=== PATIENT | female | born 1960 | race African-American/Black ===

== ENCOUNTER 2017-05-10 11:30 | Outpatient (CLI) | payer OTHER ==
--- NOTE | 2017-05-10 12:55 | RAD ---
CHEST TWO VIEWS: History: Upper lobe neoplasm, malignant. Comparison: 04-14-17 FINDINGS: Stable surgical clips projecting over the left hilum. Normal cardiac silhouette. The pulmonary vesse ls and hilum are normal. Right lung and costophrenic angle are clear. Persistent opacification of le ft lung base with tenting of the left hemidiaphragm. No pneumothorax or osseous abnormalities. IMPRESSION: No significant interval change. POS: [facility]
== END 2017-05-10 11:31 | disposition home or self-care (01) ==
LOC: RAD 11:30
PROVIDERS: ATTEND Thoracic Surgery (Cardiothoracic Vascular Surgery)
DX: C34.12 Malignant neoplasm of upper lobe, left bronchus or lung (principal)
CPT/HCPCS: 71020

== ENCOUNTER 2017-06-28 02:01 | Emergency (ER) | payer OTHER, SELFPAY ==
[2017-06-28] MEDS ORDERED: predniSONE 20 MG TAB ONE (02:28)
[2017-06-28] MEDS ORDERED: Azithromycin 250 MG TAB ONE (02:28)
[2017-06-28 02:32] LABS: #Basophils 0.1 thou/uL (0.0-0.2); #Eosinphils 0.1 thou/uL (0.0-0.7); #Lymphocytes 2.2 thou/uL (1.20-3.40); #Neutrophils 5.9 thou/uL (1.40-6.50); %Basophils 1.3 % (0.0-1.0); %Eosinophils 1.3 % (0.0-10.0); %Lymphocytes 23.8 % (21.0-51.0); %Monocytes 10.6 % (0.0-10.0); Hematocrit 40.9 % (36.0-47.0); Mean Platelet Volume 6.4 fL (7.4-10.4); Red Blood Cell (RBC) Count 4.56 mill/uL (4.20-5.40); White Blood Cell (WBC) Count 9.3 thou/uL (4.8-10.8)
[2017-06-28 02:53] LABS: ALT (SGPT) 17 U/L (8-55); AST (SGOT) 22 U/L (5-34); Alkaline Phosphatase 77 U/L (40-150); Anion Gap 15 mmol/L (10-20); BUN (Urea Nitrogen) 14 mg/dL (9.8-20.1); Calc. Creatinine Clearance 0 mL/min (70-130); Calcium 9.6 mg/dL (7.8-10.44); Carbon Dioxide 20 mmol/L (22-29); Chloride 109 mmol/L (98-107); Estimated GFR-MDRD 82; Globulin 3.4 g/dL (2.4-3.5); Protein, Total 7.9 g/dL (6.0-8.3)
[2017-06-28 02:56] LABS: Troponin I Less than 0.010 ng/mL (< 0.028)
[2017-06-28] MEDS ORDERED: Potassium Chloride 20 MEQ TAB ONE (03:02)
[2017-06-28] MEDS ORDERED: Potassium Chloride 20 MEQ/100 ML PREMIX BAG ONE (03:12)
[2017-06-28 03:42] LABS: Bilirubin Negative (Negative); Blood, Urine Negative (Negative); Glucose, Urine (Dipstick) Negative (Negative); Ketone, Urine Negative (Negative); Nitrite Negative (Negative); Protein, Urine (Dipstick) Negative (Neg-Trace); Urobilinogen 0.2 mg/dL (0.2-1.0)
--- NOTE | 2017-06-28 07:56 | RAD ---
PORTABLE CHEST 1 VIEW: DATE: 06/28/17. TIME: 2:25 a.m. HISTORY: Chest pain. FINDINGS: Comparison is made with the exam of 05/10/17. The heart size is normal. The aorta is tortuous. Surgical clips in the left hilar region are again seen. The lungs are well expanded without focal areas of consolidation, pneumothorax, or pleural e ffusions. IMPRESSION: No acute process. POS: [facility]
== END 2017-06-28 04:45 | disposition home or self-care (01) ==
LOC: ERS 02:01
DX: J44.1 Chronic obstructive pulmonary disease with (acute) exacerbation (principal); E87.6 Hypokalemia; I10 Essential (primary) hypertension; F17.210 Nicotine dependence, cigarettes, uncomplicated
CPT/HCPCS: 71010; 80053; 81003; 82553; 84484; 85025; 85379; 93005; 94640; 94760; 96365; J3480; J7506; J7620

== ENCOUNTER 2017-10-16 11:02 | Outpatient (CLI) | payer BC ==
--- NOTE | 2017-10-16 13:37 | RAD ---
PA AND LATERAL CHEST X-RAY: 10/16/2017 HISTORY: Dyspnea. COMPARISON: 06/28/2017. FINDINGS: Cardiac silhouette and pulmonary vasculature are within normal limits. Minimal linear scarring is pr esent at the left lung base. The lungs are otherwise clear. Surgical clips again overlie the left h ilar region. Remote left-sided rib fractures are seen laterally. There has been no interval change from the prior exam. IMPRESSION: No acute cardiopulmonary process. POS: [facility]
== END 2017-10-16 11:03 | disposition home or self-care (01) ==
LOC: RAD 11:02
PROVIDERS: ATTEND Internal Medicine Critical Care Medicine
DX: R06.00 Dyspnea, unspecified (principal)
CPT/HCPCS: 71046

== ENCOUNTER 2017-11-27 12:56 | Outpatient (CLI) | payer BC ==
--- NOTE | 2017-11-27 14:07 | RAD ---
TWO VIEWS OF THE CHEST: COMPARISON: 10/16/17. HISTORY: Malignant neoplasm of the left upper lobe bronchus. FINDINGS: Two views of the chest show a normal size cardiomediastinal silhouette. Surgical clips are seen nader g the left hilar region. There is no evidence of consolidation, mass, or pleural effusion. Degenera tive changes are seen in the spine. IMPRESSION: No evidence of acute cardiopulmonary disease. POS: [facility]
== END 2017-11-27 12:57 | disposition home or self-care (01) ==
LOC: RAD 12:56
PROVIDERS: ATTEND Thoracic Surgery (Cardiothoracic Vascular Surgery)
DX: C34.12 Malignant neoplasm of upper lobe, left bronchus or lung (principal)
CPT/HCPCS: 71046

== ENCOUNTER 2018-04-16 08:45 | Inpatient (IN) | payer BC ==
[2018-04-16 09:10] LABS: #Basophils 0.1 thou/uL (0.0-0.2); #Eosinphils 0.1 thou/uL (0.0-0.7); #Lymphocytes 2.7 thou/uL (1.20-3.40); #Monocytes 0.8 thou/uL (0.11-0.59); #Neutrophils 4.7 thou/uL (1.40-6.50); %Eosinophils 1.3 % (0.0-10.0); %Lymphocytes 32.1 % (21.0-51.0); %Monocytes 9.4 % (0.0-10.0); %Neutrophils 56.2 % (42.0-75.0); Hemoglobin 12.8 g/dL (12.0-16.0); Mean Corpuscular Volume 88.5 fL (78.0-98.0); Mean Platelet Volume 6.3 fL (7.4-10.4); Platelet Count 243 thou/uL (130-400); RBC Distribution Width 12.1 % (11.5-14.5); Red Blood Cell (RBC) Count 4.13 mill/uL (4.20-5.40); White Blood Cell (WBC) Count 8.4 thou/uL (4.8-10.8)
[2018-04-16 09:30] LABS: ALT (SGPT) 13 U/L (8-55); AST (SGOT) 19 U/L (5-34); Albumin 3.6 g/dL (3.5-5.0); Alkaline Phosphatase 81 U/L (40-150); Anion Gap 10 mmol/L (10-20); BUN (Urea Nitrogen) 14 mg/dL (9.8-20.1); Bilirubin, Total 0.3 mg/dL (0.2-1.2); CK (CPK) 48 U/L (29-168); Calc. Creatinine Clearance 0 mL/min (70-130); Calcium 8.8 mg/dL (7.8-10.44); Carbon Dioxide 21 mmol/L (22-29); Chloride 110 mmol/L (98-107); Estimated GFR-MDRD 81; Globulin 2.7 g/dL (2.4-3.5); Glucose 93 mg/dL (70-105); Potassium 4.2 mmol/L (3.5-5.1); Protein, Total 6.3 g/dL (6.0-8.3); Sodium 137 mmol/L (136-145)
[2018-04-16 09:34] LABS: CKMB 0.7 ng/mL (0-6.6); Troponin I 0.194 ng/mL (< 0.028)
[2018-04-16] MEDS ORDERED: methylPREDNISolone Sod Succ/PF 125 MG/2 ML VIAL ONE (09:35)
--- NOTE | 2018-04-16 10:14 | RAD ---
CHEST 1 VIEW: HISTORY: Chest pain and shortness of breath. FINDINGS: Heart size is within normal limits. Mediastinal structures are unremarkable. Surgical clips are see n in the left hilar region. The lungs are clear of infiltrates. IMPRESSION: No active intrathoracic disease. POS: [facility]
[2018-04-16] MEDS ORDERED: Ketorolac Tromethamine 30 MG/ML VIAL ONE (10:16)
[2018-04-16 10:41] LABS: Phosphorus 3.9 mg/dL (2.3-4.7)
[2018-04-16] MEDS ORDERED: Enoxaparin Sodium 40 MG/0.4 ML SYRINGE ONE (10:47)
[2018-04-16] MEDS ORDERED: Enoxaparin Sodium 60 MG/0.6 ML SYRINGE ONE (10:48)
[2018-04-16] MEDS ORDERED: Ondansetron HCl/PF 4 MG/2 ML Vial IVP PRN ×2 (12:04→14:27)
[2018-04-16] MEDS ORDERED: Acetaminophen 325 MG TAB PO PRN ×2 (12:04→14:27)
[2018-04-16] MEDS ORDERED: Sodium Chloride 0.9% 1,000 ML IV SCH (12:04)
[2018-04-16] MEDS ORDERED: Ondansetron ODT 4 MG TAB SL PRN (12:04)
[2018-04-16 12:23] LABS: CKMB 0.7 ng/mL (0-6.6); Troponin I 0.133 ng/mL (< 0.028)
[2018-04-16] MEDS ORDERED: Ketorolac Tromethamine 30 MG/ML VIAL IVP SCH (14:15)
[2018-04-16] MEDS ORDERED: Mag-Al 1200 mg/1200 mg/30 ML UDCUP PO PRN (14:27)
[2018-04-16] MEDS ORDERED: Senokot 8.6 MG TAB PO PRN (14:27)
[2018-04-16] MEDS ORDERED: Calcium Carbonate 500 MG ChewTAB PO PRN (14:27)
[2018-04-16] MEDS ORDERED: Ondansetron ODT 4 MG TAB PO PRN (14:27)
--- NOTE | 2018-04-16 14:42 | HP ---
DATE OF ADMISSION: 04/16/2018 PRIMARY CARE PHYSICIAN: [facility]. PRIMARY METER AND REGULATOR SHOP SUPERVISOR: Dr. Johnson. PRIMARY FOOD AIDE: None. CHIEF COMPLAINT: Chest discomfort. HISTORY OF PRESENT ILLNESS: Patient is a 58-year-old female with COPD, hypertension, lung cancer, s tatus post left upper lobectomy in 2017, presented to the emergency room with above complaints. Over the last one week, the patient has on and off chest discomfort which is left sided, radiating to her back. The pain was more or less constant, 8/10, without any aggravating or relieving factor. T he pain was constant and worse today for which she presented to the emergency room. She had some tom rtness of breath as well as worsening of the pain on coughing. She felt nauseous and had several epi sodes of vomiting 3 days ago. She intermittently has a bloating sensation. No cough or wheezing rep orted. She denies any diaphoresis, palpitations or syncope. She had some wheezing earlier that improved with steroids and nebulizer treatments in the emergency r oom. PAST MEDICAL HISTORY: 1. COPD. 2. Adenocarcinoma of the lung, status post resection as discussed above. 3. Hypertension. 4. History of tobacco abuse. PAST SURGICAL HISTORY: 1. Hysterectomy. 2. Breast lumpectomy. 3. Left upper lobectomy with mediastinal lymph node dissection. ALLERGIES: No known drug allergies. CURRENT HOME MEDICATIONS: Aspirin 81 mg daily, Symbicort twice a day, albuterol inhaler as needed, a lbuterol nebulization as needed. SOCIAL HISTORY: Patient currently lives at home with her family. She is a former tobacco user. She drinks alcohol almost on a daily basis. Denies any history of withdrawals. FAMILY HISTORY: She denies any premature coronary artery disease in her family. REVIEW OF SYSTEMS: The following complete review of systems was negative, unless otherwise mentioned in the HPI or below: Constitutional: Weight loss or gain, ability to conduct usual activities. Sk in: Rash, itching. Eyes: Double vision, pain. ENT/Mouth: Nose bleeding, neck stiffness, pain, te nderness. Cardiovascular: Palpitations, dyspnea on exertion, orthopnea. Respiratory: Shortness of breath, wheezing, cough, hemoptysis, fever or night sweats. Gastrointestinal: Poor appetite, abdom inal pain, heartburn, nausea, vomiting, constipation, or diarrhea. Genitourinary: Urgency, frequenc y, dysuria, nocturia. Musculoskeletal: Pain, swelling. Neurologic/Psychiatric: Anxiety, depressio n. Allergy/Immunologic: Skin rash, bleeding tendency. PHYSICAL EXAMINATION: VITAL SIGNS: Temperature 97.9, respirations 26, pulse rate of 70, blood pressure 161/96 with O2 satu ration 97% on room air. GENERAL: A 58-year-old female in mild distress due to chest discomfort. HEENT: Atraumatic, normocephalic, Sclerae are anicteric. Moist mucous membrane, no oral lesion. NECK: Supple, no JVD, no carotid bruit. LUNGS: Clear to auscultation bilaterally. Healed scar from previous surgery noted. HEART: S1, S2 present. Regular rate and rhythm. No reproducible chest wall tenderness. No rubs or gallops. ABDOMEN: Soft, mild epigastric tenderness, no rebound, guarding, no costovertebral angle tenderness. EXTREMITIES: No edema or calf tenderness. NEUROLOGIC: Grossly nonfocal, moves all four extremities. PSYCHIATRY: Alert, awake, oriented x3. SKIN: Warm and dry. LYMPH NODES: No palpable lymph nodes in the neck. PERIPHERAL VASCULAR: Radial pulses palpable bilaterally. MUSCULOSKELETAL: No joint swelling or tenderness. LABORATORY FINDINGS: EKG by my review showed nonspecific ST-T wave changes. Initial troponin was 0. 194. D-dimer was negative. WBC 8.4 with hemoglobin 12.8, BUN 14, creatinine 0.87. LFTs in normal r ayde. BNP 34.4. IMPRESSION AND PLAN: 1. Unstable angina. 2. Chronic obstructive pulmonary disease with mild chronic obstructive pulmonary disease exacerbatio n. 3. Left upper lobe lung cancer, status post left upper lobectomy. 4. Former smoker. 5. Daily alcohol use. 6. History of mild ascending aorta aneurysmal dilatation over 4 cm in 2017. 7. Chronic kidney disease stage 2. 8. Hypertension. PLAN: The patient will be monitored on the telemetry unit. The patient will require 2-[address] abilization. Cardiology will be consulted. Echocardiogram will be obtained. We will continue nebul izer treatment. Add oral steroids. Serial troponins. Continue aspirin. She received 1 dose of 1 m g/kg Lovenox in the emergency room. Plan of care was discussed with the patient. She stated understanding. Primary care physician advis ed to follow. Plan of care was discussed with the patient in detail. She stated understanding.
[2018-04-16] MEDS: Sodium Chloride 0.9% 1,000 ML IV SCH ×2 (14:44→22:15)
[2018-04-16 15:20] LABS: Troponin I 0.115 ng/mL (< 0.028)
[2018-04-16] MEDS ORDERED: Metoprolol Tartrate 25 MG TAB PO SCH (21:00)
[2018-04-16] MEDS: Nitroglycerin 0.4 MG TAB (25 Tab Bottle) PO PRN (21:35)
[2018-04-16] MEDS: Ibuprofen 600 MG TAB PO SCH (21:35)
[2018-04-16] MEDS: Docusate 100 MG CAP PO SCH (21:35)
[2018-04-17] MEDS: Nitroglycerin 0.4 MG TAB (25 Tab Bottle) PO PRN ×2 (03:08→03:13)
[2018-04-17 05:14] LABS: #Monocytes 1.4 thou/uL (0.11-0.59); #Neutrophils 8.8 thou/uL (1.40-6.50); %Basophils 0.3 % (0.0-1.0); %Eosinophils 0.1 % (0.0-10.0); %Lymphocytes 16.6 % (21.0-51.0); %Monocytes 11.2 % (0.0-10.0); %Neutrophils 71.8 % (42.0-75.0); Hemoglobin 11.5 g/dL (12.0-16.0); Mean Corpuscular HGB CONC 35.1 g/dL (32.0-36.0); Mean Corpuscular Hemoglobin 31.6 pg (27.0-31.0); Mean Corpuscular Volume 89.9 fL (78.0-98.0); Mean Platelet Volume 6.7 fL (7.4-10.4); Platelet Count 209 thou/uL (130-400); RBC Distribution Width 12.2 % (11.5-14.5); Red Blood Cell (RBC) Count 3.64 mill/uL (4.20-5.40); White Blood Cell (WBC) Count 12.2 thou/uL (4.8-10.8)
[2018-04-17 05:33] LABS: Anion Gap 11 mmol/L (10-20); BUN (Urea Nitrogen) 16 mg/dL (9.8-20.1); Calc. Creatinine Clearance 48 mL/min (70-130); Calcium 8.4 mg/dL (7.8-10.44); Carbon Dioxide 19 mmol/L (22-29); Chloride 111 mmol/L (98-107); Estimated GFR-MDRD 75; Glucose 103 mg/dL (70-105); Potassium 3.8 mmol/L (3.5-5.1); Sodium 137 mmol/L (136-145)
[2018-04-17] MEDS ORDERED: predniSONE 20 MG TAB PO SCH (08:00)
[2018-04-17] MEDS: Docusate 100 MG CAP PO SCH (08:17)
[2018-04-17] MEDS: Ibuprofen 600 MG TAB PO SCH (08:17)
[2018-04-17] MEDS ORDERED: Folic Acid 1 MG TAB PO SCH (09:00)
[2018-04-17] MEDS ORDERED: Multivit, Therapeutic 1 TAB PO SCH (09:00)
[2018-04-17] MEDS ORDERED: Aspirin 325 MG TAB PO SCH (09:00)
[2018-04-17] MEDS ORDERED: Benzonatate 100 MG CAP PO PRN (10:01)
--- NOTE | 2018-04-17 10:53 | PRG ---
DATE OF SERVICE: 04/17/2018 SUBJECTIVE: The patient reports she feels better. She feels like her breathing is comfortable. She does continue to have some discomfort in her left lower anterior chest, but believes it is from some swelling related to her prior surgery. Otherwise, she feels like she is well enough to go home. OBJECTIVE: VITAL SIGNS: Temperature is 98.1, pulse 76, respirations 16, O2 sat 98% on room air, BP 124/76 up to 163/86. GENERAL APPEARANCE: Age appropriate female in no distress. She is awake, alert, oriented, pleasant, cooperative. HEART: Regular rate and rhythm. LUNGS: Clear bilaterally. ABDOMEN: Soft, nontender. EXTREMITIES: Warm and dry. MUSCULOSKELETAL: Does reveal tenderness to palpation in the left anterior lower rib cage with some s light fullness in that area, which the patient appreciates that as well. She states this is reproduc ing her pain. It does seem to progress down below the ribcage into the musculature of the abdominal wall as well. LABORATORY DATA: White count is 12.2, hemoglobin 11.5, platelets 209, chloride 111, CO2 of 19, other canela chemistry is negative. Troponins were 0.133, repeat 0.115. IMPRESSION AND PLAN: 1. Chest pain. The patient has a history of a left upper lobe adenocarcinoma status post lobectomy. It appears that the patient had a PET scan prior to that, which did not indicate any evidence of ot her malignancy other than the isolated nodule. She has received serial chest x-rays since that time with no evidence of recurrence. Low likelihood that this represents recurrence of malignancy. May b e purely musculoskeletal with more costochondritis type symptoms. She also, however, has elevated tr oponins. She remains on telemetry. Echo is pending. A cardiology consult is pending. 2. History of chronic obstructive pulmonary disease. The patient reports some cough, but her breath ing is quite comfortable at present. She did receive a dose of steroids, but has p.r.n. nebulizer tr eatments otherwise. 3. Leukocytosis secondary to the nebulizer treatment. 4. Hypertension, relatively stable. 5. History of chronic kidney disease stage 2. Creatinine is improved back to baseline.
[2018-04-17 11:17] VITALS: BMI 20.2
--- NOTE | 2018-04-17 11:30 | DIS ---
DATE OF ADMISSION: 04/16/2018 DATE OF DISCHARGE: 04/17/2018 DISCHARGE DIAGNOSES: 1. Left-sided chest pain. 2. Mildly elevated troponins. 3. History of left upper lobe adenocarcinoma status post left upper lobe resection. 4. History of chronic obstructive pulmonary disease. 5. Hypertension. 6. Chronic kidney disease stage 2. 7. Costochondritis. HISTORY: This patient is a 58-year-old female who has the above-mentioned history of the left upper lobe adenocarcinoma status post excision 13 months ago. The patient had a PET scan prior to that exc ision which only revealed the nodule and has had a followup serial chest x-rays without evidence of r ecurrence. The patient presented with a left anterior lower chest discomfort. It was somewhat posit ional and tender to palpation. Initial chest x-ray was negative as were her labs and EKG. However, she did have a slight elevation of the troponin I at 0.133. HOSPITAL COURSE: The patient was admitted and placed on telemetry. She was continued on with serial enzymes which revealed a followup of one of 0.115. She had an echocardiogram pending. She had a Ca rdiology consult; however, it was felt that the patient's symptoms were more likely musculoskeletal r elated to more costochondritis. With that, the patient was felt to be stable for discharge from the perspective of Cardiology. DISPOSITION: The patient will be discharged to home. DISCHARGE MEDICATIONS: She will continue with her usual home medications including albuterol, Symbic ort, and aspirin. She will also be on ibuprofen at 600 mg p.o. t.i.d. with meals. FOLLOWUP: She is to follow up with Dr. Colin, with Dr. Tenzin Smith and with the [facility]. She should return to the emergency department should she have any problems prior to that cassandra loco
[2018-04-17 11:35] VITALS: BP 150/82; TEMP 98.4
--- NOTE | 2018-04-17 15:19 | CON ---
DATE OF CONSULTATION: 04/17/2018 HISTORY OF PRESENT ILLNESS: The patient is a 58-year-old woman, who presents with left-sided chest d iscomfort. The patient has a history of lung carcinoma. She has previously undergone a left lobecto my. The patient states she was in usual state of health until several days ago she developed left-si ded chest pain. This is along her incision. She states whenever she moves in a certain position her chest pain is worsened. The discomfort is also made more severe when she takes a deep breath. The pain has been persistent for the past 5 days. PAST MEDICAL HISTORY: Significant for, 1. COPD. 2. Hypertension. 3. She has a history apparently also of a thoracic aortic aneurysm. PAST SURGICAL HISTORY: She has had a lobectomy. She has had breast surgery. She has had a hysterec laura. ALLERGIES: She has no known drug allergies. FAMILY HISTORY: No strong family history of heart disease. SOCIAL HISTORY: Long history of tobacco abuse. REVIEW OF SYSTEMS: Ten-point system, otherwise, unremarkable. PHYSICAL EXAMINATION: GENERAL: A well-developed woman in mild distress. VITAL SIGNS: Blood pressure 155/88. NECK: No jugular venous distention. LUNGS: Decreased breath sounds in the left lung field. HEART: Regular rate and rhythm, normal S1 and S2, no murmurs. ABDOMEN: Nondistended. EXTREMITIES: Showed no edema. VASCULAR: Radial pulses are 2+. NEUROLOGIC EXAM: Nonfocal. LABORATORY RESULTS: White blood cell count is 8.4, hemoglobin 12.8, hematocrit 36.5, platelets 243. Sodium is 137, potassium 4.2, chloride 110, bicarbonate 21, BUN 14, creatinine is 0.87, troponin was 0.133 and troponin 0.7. IMPRESSION: 1. Chest pain, atypical, suggestive of musculoskeletal discomfort. 2. History of lung carcinoma. 3. Chronic obstructive pulmonary disease. 4. Hypertension. 5. Tobacco abuse. This patient presents with atypical chest pain. We will treat the patient with Toradol and Motrin. Will undergo outpatient cardiac followup. We will follow this patient with you through her [facility].
--- NOTE | 2018-04-17 15:32 | ADD-CON ---
Her EKG revealed normal sinus rhythm with a nonspecific T-wave abnormality.
== END 2018-04-17 13:23 | disposition home or self-care (01) | DRG 206 ==
LOC: ERS 08:45 → 2NO 11:25
PROVIDERS: ADMIT Internal Medicine; ATTEND Internal Medicine
DX: M94.0 Chondrocostal junction syndrome [Tietze] (principal); J44.1 Chronic obstructive pulmonary disease with (acute) exacerbation; Z85.118 Personal history of other malignant neoplasm of bronchus and lung; Z90.2 Acquired absence of lung [part of]; Z87.891 Personal history of nicotine dependence; Z79.82 Long term (current) use of aspirin; Z79.899 Other long term (current) drug therapy; N18.2 Chronic kidney disease, stage 2 (mild); I12.9 Hypertensive chronic kidney disease with stage 1 through stage 4 chronic kidney disease, or unspecified chronic kidney disease; M79.1 Myalgia
CPT/HCPCS: 36415; 71045; 80048; 80053; 82553; 83735; 83880; 84100; 84484; 85025; 85379; 93005; 94640; 96372; 96374; 96375; J1650; J1885; J2930; J7506; J7620

== ENCOUNTER 2018-06-11 15:08 | Outpatient (CLI) | payer BC ==
--- NOTE | 2018-06-11 16:17 | RAD ---
CHEST TWO VIEWS: HISTORY: A 58-year-old female with a history of neoplasm of upper lobe. COMPARISON: 11/27/2017 FINDINGS: Surgical clips noted in the left suprahilar region. There appear to be some healed rib fractures, po ssibly related to prior surgery. Heart size is normal. The right lung is clear. Atherosclerosis of the aorta. IMPRESSION: 1. Postoperative changes of the left chest. 2. Atherosclerosis of the aorta with some ectasia. POS: [facility]
== END 2018-06-11 15:09 | disposition home or self-care (01) ==
LOC: RAD 15:08
PROVIDERS: ATTEND Thoracic Surgery (Cardiothoracic Vascular Surgery)
DX: C34.12 Malignant neoplasm of upper lobe, left bronchus or lung (principal); I70.0 Atherosclerosis of aorta; I77.819 Aortic ectasia, unspecified site; Z98.890 Other specified postprocedural states
CPT/HCPCS: 71046

== ENCOUNTER 2018-07-02 10:14 | Emergency (ER) | payer BC ==
[2018-07-02] MEDS ORDERED: Ondansetron PF 4 MG/2 ML Vial ONE (10:46)
[2018-07-02] MEDS ORDERED: Morphine 4 MG/ML VIAL ONE (10:46)
[2018-07-02 10:55] LABS: #Basophils 0.1 thou/uL (0.0-0.2); #Eosinphils 0.1 thou/uL (0.0-0.7); #Lymphocytes 1.7 thou/uL (1.20-3.40); #Neutrophils 7.7 thou/uL (1.40-6.50); %Basophils 0.8 % (0.0-1.0); %Lymphocytes 15.7 % (21.0-51.0); %Monocytes 9.6 % (0.0-10.0); %Neutrophils 72.9 % (42.0-75.0); Mean Corpuscular HGB CONC 32.8 g/dL (32.0-36.0); Mean Corpuscular Hemoglobin 30.3 pg (27.0-31.0); Mean Corpuscular Volume 92.5 fL (78.0-98.0); Mean Platelet Volume 7.5 fL (7.4-10.4); Platelet Count 214 thou/uL (130-400); RBC Distribution Width 12.2 % (11.5-14.5); Red Blood Cell (RBC) Count 4.62 mill/uL (4.20-5.40); White Blood Cell (WBC) Count 10.6 thou/uL (4.8-10.8)
[2018-07-02] MEDS ORDERED: Diazepam 5 MG TAB ONE (11:16)
[2018-07-02 11:18] LABS: ALT (SGPT) 19 U/L (8-55); AST (SGOT) 28 U/L (5-34); Albumin 3.2 g/dL (3.5-5.0); Alkaline Phosphatase 67 U/L (40-150); Anion Gap 12 mmol/L (10-20); BUN (Urea Nitrogen) 10 mg/dL (9.8-20.1); Bilirubin, Total 0.4 mg/dL (0.2-1.2); CK (CPK) 49 U/L (29-168); Calc. Creatinine Clearance 0 mL/min (70-130); Calcium 8.8 mg/dL (7.8-10.44); Carbon Dioxide 20 mmol/L (22-29); Chloride 112 mmol/L (98-107); Estimated GFR-MDRD 69; Globulin 2.5 g/dL (2.4-3.5); Glucose 120 mg/dL (70-105); Protein, Total 5.7 g/dL (6.0-8.3); Sodium 140 mmol/L (136-145)
[2018-07-02 11:23] LABS: CKMB 0.5 ng/mL (0-6.6); Troponin I Less than 0.010 ng/mL (< 0.028)
[2018-07-02 11:25] LABS: INR-International Normal Ratio 0.9; PTT 26.4 SEC (22.9-36.1); Prothrombin Time 12.1 SEC (12.0-14.7)
--- NOTE | 2018-07-02 12:34 | CT ---
CT HEAD NONCONTRAST: INDICATIONS: Pain, new onset. Right upper extremity pain, extending into the right neck. FINDINGS: There is mild chronic ischemic disease without evidence of intracranial hemorrhage, mass effect, midl ine shift, or ventriculomegaly. Physiologic basal ganglia calcifications are present bilaterally. IMPRESSION: 1. No acute intracranial hemorrhage or mass effect. 2. Mild chronic ischemic disease. Notification of findings placed to ER physician, Lyly Rico M.D., at 1031 hours on 07/02/2018. CODE CR POS: [facility]
--- NOTE | 2018-07-02 13:50 | CT ---
CT CERVICAL SPINE NONCONTRAST: DATE: 07/02/2018. HISTORY: A 58-year-old female with right cervicalgia and right cervical radiculopathy. No injury. FINDINGS: The vertebral body heights are maintained. There is severe disk space narrowing at C5-6, with end pl ate irregularity. All of the rest of the disk spaces are maintained. There are mild degenerative fa cet changes on the right, and mild to moderate degenerative face changes on the left, at C3-4. There is loss of lordosis, suggestive of muscle spasm. Perivertebral spaces are unremarkable. There is n o severe central spinal canal stenosis at any level. At C5-6, there are large left uncinate process osteophytes that cause moderate to severe left neural foraminal stenosis. Smaller right uncinate pro cess osteophytes do not cause significant right-sided neural foraminal stenosis. There is no other l evel of significant neural foraminal stenosis. No fracture. Broad-based disk-osteophytic bar comple x at C5-6 encroaches upon the anterior aspect of the spinal canal, causing mild central spinal canal stenosis. The right subclavian artery traverses posterior to the esophagus, anterior to the spine. IMPRESSION: 1. Moderate to severe degenerative disk disease isolated to the C5-6 level where there is high-grade left neural foraminal stenosis. 2. The rest of the levels are essentially normal. 3. For cervical radiculopathy, MRI of the cervical spine is recommended on a nonemergent basis 4. Aberrant right subclavian artery. TODD Ibarra POS: [facility]
== END 2018-07-02 11:42 | disposition home or self-care (01) ==
LOC: ERS 10:14
DX: M54.12 Radiculopathy, cervical region (principal); M25.511 Pain in right shoulder; I10 Essential (primary) hypertension; J44.9 Chronic obstructive pulmonary disease, unspecified; F17.210 Nicotine dependence, cigarettes, uncomplicated; Z79.82 Long term (current) use of aspirin
CPT/HCPCS: 36416; 70450; 72125; 80053; 82553; 84484; 85025; 85610; 85730; 93005; 96374; 96375; J2270; J2405

== ENCOUNTER 2018-09-01 09:16 | Emergency (ER) | payer BC ==
[2018-09-01] MEDS ORDERED: Ketorolac Tromethamine 30 MG/ML VIAL ONE (10:00)
[2018-09-01 10:15] LABS: #Basophils 0.1 thou/uL (0.0-0.2); #Eosinphils 0.1 thou/uL (0.0-0.7); #Lymphocytes 2.3 thou/uL (1.20-3.40); #Monocytes 1.2 thou/uL (0.11-0.59); #Neutrophils 6.1 thou/uL (1.40-6.50); %Basophils 0.9 % (0.0-1.0); %Eosinophils 1.2 % (0.0-10.0); %Lymphocytes 23.2 % (21.0-51.0); %Monocytes 12.6 % (0.0-10.0); %Neutrophils 62.2 % (42.0-75.0); Hemoglobin 14.2 g/dL (12.0-16.0); Mean Corpuscular HGB CONC 33.4 g/dL (32.0-36.0); Mean Corpuscular Hemoglobin 30.2 pg (27.0-31.0); Mean Corpuscular Volume 90.3 fL (78.0-98.0); Mean Platelet Volume 7.2 fL (7.4-10.4); Platelet Count 269 thou/uL (130-400); Red Blood Cell (RBC) Count 4.72 mill/uL (4.20-5.40); White Blood Cell (WBC) Count 9.8 thou/uL (4.8-10.8)
[2018-09-01 10:32] LABS: ALT (SGPT) 20 U/L (8-55); AST (SGOT) 27 U/L (5-34); Albumin 4.3 g/dL (3.5-5.0); Alkaline Phosphatase 98 U/L (40-150); Anion Gap 16 mmol/L (10-20); BUN (Urea Nitrogen) 16 mg/dL (9.8-20.1); Bilirubin, Total 0.5 mg/dL (0.2-1.2); Calc. Creatinine Clearance 0 mL/min (70-130); Calcium 9.4 mg/dL (7.8-10.44); Carbon Dioxide 21 mmol/L (22-29); Chloride 106 mmol/L (98-107); Estimated GFR-MDRD 64; Globulin 3.2 g/dL (2.4-3.5); Glucose 92 mg/dL (70-105); Protein, Total 7.5 g/dL (6.0-8.3); Sodium 139 mmol/L (136-145)
--- NOTE | 2018-09-01 10:38 | RAD ---
PORTABLE CHEST: Date: 09/01/18 PROVIDED CLINICAL HISTORY: Chest pain. FINDINGS: Comparison with 04/16/18. Cardiac and mediastinal silhouette is within normal limits. Surgical clips are again seen in the left hilar region. No focal consolidation, pleural fluid, or pneumothorax apparent. IMPRESSION: No evidence for an acute cardiopulmonary process. POS: [facility]
== END 2018-09-01 11:02 | disposition home or self-care (01) ==
LOC: ERS 09:16
DX: R07.89 Other chest pain (principal); I10 Essential (primary) hypertension; J44.9 Chronic obstructive pulmonary disease, unspecified; F17.210 Nicotine dependence, cigarettes, uncomplicated; Z79.82 Long term (current) use of aspirin; Z79.899 Other long term (current) drug therapy
CPT/HCPCS: 71045; 80053; 84484; 85025; 93005; 94760; 96374; J1885

== ENCOUNTER 2018-11-04 09:05 | Emergency (ER) | payer BC ==
--- NOTE | 2018-11-04 13:01 | RAD ---
RIGHT TOE RADIOGRAPHS 3 VIEWS: DATE: 11/04/2018. PROVIDED CLINICAL HISTORY: Pain status post injury. FINDINGS: There is an obliquely oriented nondisplaced fracture involving the 5th digit proximal phalanx without intraarticular extension. IMPRESSION: As above. POS: [facility]
== END 2018-11-04 10:10 | disposition home or self-care (01) ==
LOC: ERS 09:05
DX: S92.514A Nondisplaced fracture of proximal phalanx of right lesser toe(s), initial encounter for closed fracture (principal); I10 Essential (primary) hypertension; J44.9 Chronic obstructive pulmonary disease, unspecified; F17.210 Nicotine dependence, cigarettes, uncomplicated; Z79.82 Long term (current) use of aspirin; Z79.899 Other long term (current) drug therapy; W22.8XXA Striking against or struck by other objects, initial encounter

== ENCOUNTER 2019-04-22 10:09 | Outpatient (CLI) | payer BC ==
--- NOTE | 2019-04-22 10:14 | RAD ---
EXAM: Chest 2 views: HISTORY: Dyspnea COMPARISON: 06/11/2018 FINDINGS: There is a normal-sized cardiomediastinal silhouette. There is no evidence of consolidation, mass, or pleural effusion. The bones are unremarkable. IMPRESSION: No evidence of acute cardiopulmonary disease
== END 2019-04-22 10:10 | disposition home or self-care (01) ==
LOC: RAD 10:09
PROVIDERS: ATTEND Internal Medicine Critical Care Medicine
DX: R06.00 Dyspnea, unspecified (principal)
CPT/HCPCS: 71046

== ENCOUNTER 2019-07-09 09:31 | Emergency (ER) | payer BC ==
[2019-07-09 10:05] LABS: #Basophils 0.1 thou/uL (0.0-0.2); #Eosinphils 0.3 thou/uL (0.0-0.7); #Lymphocytes 2.8 thou/uL (1.20-3.40); #Monocytes 1.8 thou/uL (0.11-0.59); #Neutrophils 9.2 thou/uL (1.40-6.50); %Basophils 0.6 % (0.0-1.0); %Eosinophils 1.9 % (0.0-10.0); %Lymphocytes 19.5 % (21.0-51.0); %Monocytes 12.7 % (0.0-10.0); %Neutrophils 65.4 % (42.0-75.0); Hemoglobin 13.5 g/dL (12.0-16.0); Mean Corpuscular HGB CONC 33.5 g/dL (32.0-36.0); Mean Corpuscular Hemoglobin 30.8 pg (27.0-31.0); Mean Corpuscular Volume 91.7 fL (78.0-98.0); Mean Platelet Volume 7.2 fL (7.4-10.4); Platelet Count 253 thou/uL (130-400); RBC Distribution Width 11.6 % (11.5-14.5); White Blood Cell (WBC) Count 14.1 thou/uL (4.8-10.8)
[2019-07-09 10:29] LABS: ALT (SGPT) 15 U/L (8-55); AST (SGOT) 22 U/L (5-34); Albumin 3.6 g/dL (3.5-5.0); Alkaline Phosphatase 93 U/L (40-110); Anion Gap 10 mmol/L (10-20); BUN (Urea Nitrogen) 10 mg/dL (9.8-20.1); Bilirubin, Total 0.3 mg/dL (0.2-1.2); CK (CPK) 53 U/L (29-168); Calc. Creatinine Clearance 0 mL/min (70-130); Calcium 8.9 mg/dL (7.8-10.44); Carbon Dioxide 25 mmol/L (22-29); Chloride 111 mmol/L (98-107); Estimated GFR-MDRD 84; Globulin 2.8 g/dL (2.4-3.5); Glucose 81 mg/dL (70-105); Lipase 67 U/L (8-78); Potassium 3.7 mmol/L (3.5-5.1); Protein, Total 6.4 g/dL (6.0-8.3); Sodium 142 mmol/L (136-145)
[2019-07-09 10:49] LABS: CKMB 0.7 ng/mL (0-6.6)
[2019-07-09] MEDS ORDERED: Albuterol Sulfate 2.5 mg/3 ml Neb ONE (10:54)
--- NOTE | 2019-07-09 11:00 | RAD ---
Chest AP view INDICATION: Chest pain for one week that has been worsening COMPARISON: April 22, 2019 FINDINGS: Lungs:The lungs are clear Cardiac silhouette:The cardiomediastinal silhouette appears within normal limits. Pulmonary vasculature:Normal Pleural spaces:No pleural effusion or pneumothorax is demonstrated. Upper abdomen:No abnormality seen. Osseous structures: No acute osseous abnormality. Additional findings:Surgical clips within the left suprahilar region are stable. IMPRESSION: No acute cardiopulmonary abnormality.
[2019-07-09] MEDS ORDERED: cefTRIAXone\\ROCEPHIN 1 GM VIAL ONE (11:14)
[2019-07-09] MEDS ORDERED: Sodium Chloride 0.9% 100 ML ONE (11:14)
[2019-07-09] MEDS ORDERED: Dexamethasone 10 MG/ML VIAL ONE (11:14)
[2019-07-09] MEDS ORDERED: diphenhydrAMINE 50 MG/ML VIAL ONE (11:23)
[2019-07-09 12:09] LABS: Troponin I 0.015 ng/mL (< 0.028)
--- NOTE | 2019-07-12 16:14 | EKG ---
Test Reason : Blood Pressure : / mmHG Vent. Rate : 078 BPM Atrial Rate : 078 BPM P-R Int : 148 ms QRS Dur : 072 ms QT Int : 386 ms P-R-T Axes : 043 027 009 degrees QTc Int : 440 ms Poor data quality, interpretation may be adversely affected Normal sinus rhythm Normal ECG Confirmed by MARTINE KIM, REGINA ([id number]), clinical editor ARMIN MAGAÑA ([id number]) on 07/12/2019 4:13:02 PM Referred By: Confirmed By:REGINA FARLEY MD
== END 2019-07-09 12:53 | disposition home or self-care (01) ==
LOC: ERS 09:31
DX: J18.9 Pneumonia, unspecified organism (principal); R07.89 Other chest pain; I10 Essential (primary) hypertension; F17.210 Nicotine dependence, cigarettes, uncomplicated
CPT/HCPCS: 36415; 71045; 80053; 82550; 82553; 83690; 83880; 84484; 85025; 85379; 93005; 94640; 94644; 96365; 96375; J0696; J1100; J1200; J3490; J7611; J7620

== ENCOUNTER 2019-09-09 11:03 | Observation (INO) | payer BC ==
[2019-09-09 11:41] LABS: #Basophils 0.1 thou/uL (0.0-0.2); #Eosinphils 0.2 thou/uL (0.0-0.7); #Lymphocytes 2.3 thou/uL (1.20-3.40); #Monocytes 1.1 thou/uL (0.11-0.59); #Neutrophils 5.9 thou/uL (1.40-6.50); %Basophils 0.8 % (0.0-1.0); %Lymphocytes 23.7 % (21.0-51.0); %Monocytes 11.4 % (0.0-10.0); %Neutrophils 62.2 % (42.0-75.0); Hemoglobin 13.1 g/dL (12.0-16.0); Mean Corpuscular Hemoglobin 29.5 pg (27.0-31.0); Mean Corpuscular Volume 92.2 fL (78.0-98.0); Platelet Count 238 thou/uL (130-400); Red Blood Cell (RBC) Count 4.44 mill/uL (4.20-5.40); White Blood Cell (WBC) Count 9.5 thou/uL (4.8-10.8)
--- NOTE | 2019-09-09 11:45 | RAD ---
EXAM: Single view of the chest HISTORY: Chest pain COMPARISON: 07/09/2019 FINDINGS: Single view of the chest shows a normal sized cardiomediastinal silhouette. There is no aura dence of consolidation, mass, or pleural effusion. The bones are unremarkable. IMPRESSION: No evidence of acute cardiopulmonary disease
[2019-09-09 12:11] LABS: ALT (SGPT) 20 U/L (8-55); AST (SGOT) 23 U/L (5-34); Albumin 3.5 g/dL (3.5-5.0); Alkaline Phosphatase 71 U/L (40-110); Anion Gap 11 mmol/L (10-20); BUN (Urea Nitrogen) 20 mg/dL (9.8-20.1); Bilirubin, Total 0.3 mg/dL (0.2-1.2); Calc. Creatinine Clearance 0 mL/min (70-130); Calcium 8.7 mg/dL (7.8-10.44); Carbon Dioxide 25 mmol/L (22-29); Chloride 109 mmol/L (98-107); Estimated GFR-MDRD 73; Globulin 2.4 g/dL (2.4-3.5); Glucose 96 mg/dL (70-105); Potassium 4.6 mmol/L (3.5-5.1); Protein, Total 5.9 g/dL (6.0-8.3); Sodium 140 mmol/L (136-145)
[2019-09-09 12:26] LABS: CKMB 0.9 ng/mL (0-6.6)
[2019-09-09] MEDS ORDERED: Aspirin Chewable 81 MG TAB ONE (13:14)
[2019-09-09] MEDS ORDERED: Nitroglycerin 2% Ointment 1 INCH/1 GM Packet ONE (13:14)
[2019-09-09] MEDS ORDERED: Iopamidol-370 76% 500 ML 1 ML ONE (13:23)
[2019-09-09] MEDS ORDERED: Acetaminophen 325 MG TAB PO PRN (13:45)
[2019-09-09] MEDS ORDERED: Sodium Chloride 0.9% 1,000 ML IV SCH ×2 (13:45→23:55)
[2019-09-09] MEDS ORDERED: Ondansetron PF 4 MG/2 ML Vial IVP PRN (13:45)
[2019-09-09] MEDS ORDERED: Ondansetron ODT 4 MG TAB SL PRN (13:45)
--- NOTE | 2019-09-09 13:59 | CT ---
CT AORTOGRAM CHEST AND ABDOMEN WITH IV CONTRAST: Date: 09/09/2019 Axial tomograms obtained through chest and abdomen following aortogram protocol with multiplanar manjit nstruction and 3D postprocessing. INDICATION: Chest pain. Rule out aortic dissection. FINDINGS: There is aneurysmal dilatation of the ascending thoracic aorta with diameter measured at 4.1 cm. Ther e is no evidence of aortic dissection. Mild ectasia of the descending thoracic aorta is seen. Diamete r is measured at 2.5 cm. Abdominal aorta is unremarkable. No dissection or aneurysmal dilatation. Aortic branches including ce liac artery, superior mesenteric artery, and renal arteries appear patent with no evidence of stenosi s. Aortic bifurcation is patent. The visualized iliac arteries are normal and patent. The lung hagen are clear. No infiltrate or effusion. The pulmonary arteries are opacified. There is no evidence of proximal pulmonary embolus. Liver, spleen, and pancreas appear unremarkable. Adrenal glands and kidneys are unremarkable. Bowel l oops are unremarkable. IMPRESSION: 1. Aneurysmal dilatation of the ascending thoracic aorta. 2. No evidence of thoracic or abdominal aortic dissection. POS: [facility]
[2019-09-09 16:32] LABS: Troponin I 0.045 ng/mL (< 0.028)
[2019-09-09] MEDS ORDERED: Nitroglycerin 0.4 MG TAB (25 Tab Bottle) PO PRN (16:34)
[2019-09-09] MEDS ORDERED: Acetaminophen 650 MG Suppository PR PRN (16:34)
[2019-09-09] MEDS ORDERED: PROVENTIL INHALER 6.7 G (200 INHALATIONS) INH PRN (17:03)
[2019-09-09] MEDS ORDERED: ALBUTEROL INH PRN (17:03)
--- NOTE | 2019-09-09 17:15 | PDOC.HHP ---
Hospitalist HPI - History of Present Illness Chest Pain History of Present Illness: 59/F with chest pain, has PMH significant for HTN, lung CA with partial left lobectomy in 2017 followed by , Thoracic aortic aneursym. Reports chest pain for the past 2-3 months, 2-3 times per day, located left chest, under her breast, describes as sharp, pressure, lasting 15 minutes, sometimes exacerbated after meals, and sometimes relieved with eating mustard, reports the chest pain has intensified over the past several days, most recent episode was at 1100 this morning while sitting at home, denies eating any meals this morning, reports associated heart palpitations and SOB. Denies any fever, chills, Lower extremity swelling, nausea vomiting or diarrhea. Was recently seen in the ER on 07/09 for similar symptoms, per patient, was diagnosed COPD flare / clinical pneumonia, discharged from ER with prescription for antibiotics and steroids. ED Course: EKG NSR Troponins 0.063, CKMB 0.9 CT aorta/chest/abdomen showed 4.1cm aneursym to ascending thoracic aorta ( previously 4.0cm on 01/28) CXR no acute cardiopulmonary process NA 140, K 4.6, Cl 109, CO2 25, BUN 20, Creatinine 094, Glucose 96 WBC 9.5, Hgb. 13.1, Hct. 40.9, Platelets 238 Given ASA 324mg Nitropaste 1 inch 1L NS DuoNeb, Ipatropium, Albuterol Hospitalist ROS - Review of Systems Constitutional: denies: fever, chills, sweats, weakness, malaise, other Eyes: denies: pain, vision change, conjunctivae inflammation, eyelid inflammation, redness, other ENT: denies: ear pain, ear discharge, nose pain, nose discharge, nose congestion , mouth pain, mouth swelling, throat pain, throat swelling, other Respiratory: reports: cough (chronic), dry, shortness of breath (chronic) Cardiovascular: reports: chest pain, palpitations. denies: orthopnea, edema Gastrointestinal: reports: vomiting (x 1 in the ED). denies: nausea, abdominal pain, diarrhea Genitourinary: denies: dysuria, frequency, incontinence, hematuria, retention, other Musculoskeletal: reports: back pain (chronic) Skin: denies: rash, lesions Neurological: denies: weakness, numbness, change in speech, confusion Hospitalist History - Past Medical History Source: patient Cardiac: reports: HTN Pulmonary: reports: COPD Psych: denies: Anxiety, Depression Musculoskeletal: reports: Chronic low back pain (takes OTC tylenol) Endocrine: reports: no pertinent history Dermatology: reports: no pertinent history - Past Surgical History Past Surgical History: reports: Breast Biopsy (Left lumpectomy), Hysterectomy, Other (Left partial lobectomy 03/30, ) - Social History Smoking Status: Current every day smoker (40 pack year history) Tobacco Type: cigarettes Alcohol: reports: Heavy (6 pack per day) Drugs: reports: none Living Situation: With Family (spouse) Occupation: disabled Activity level: independent ambulation - Exam General Appearance: NAD, awake alert Eye: PERRL, anicteric sclera ENT: normocephalic atraumatic, moist mucosa Neck: supple, no JVD, no thyromegaly Heart: RRR, no murmur, no gallops, no rubs, normal peripheral pulses Respiratory: CTAB, no wheezes, no rales, no ronchi, normal chest expansion Respiratory - other findings: diminished in BLL Gastrointestinal: soft, non-tender, non-distended, normal bowel sounds, no hepatomegaly, no splenomegaly Extremities: no cyanosis, no clubbing, no edema Skin: no lesions, no rashes Neurological: cranial nerve grossly intact, no focal deficits Musculoskeletal: normal tone, normal strength Psychiatric: normal affect, A&O x 3 Hospitalist Results - Labs Result Diagrams: 09/09/19 11:28 09/09/19 11:28 Lab results: WBC 9.5 thou/uL (4.8-10.8) 09/09/19 11:28 Hgb 13.1 g/dL (12.0-16.0) 09/09/19 11:28 Hct 40.9 % (36.0-47.0) 09/09/19 11:28 MCV 92.2 fL (78.0-98.0) 09/09/19 11:28 Plt Count 238 thou/uL (130-400) 09/09/19 11:28 Neutrophils % 62.2 % (42.0-75.0) 09/09/19 11:28 Sodium 140 mmol/L (136-145) 09/09/19 11:28 Potassium 4.6 mmol/L (3.5-5.1) 09/09/19 11:28 Chloride 109 mmol/L (98-107) H 09/09/19 11:28 Carbon Dioxide 25 mmol/L (22-29) 09/09/19 11:28 BUN 20 mg/dL (9.8-20.1) 09/09/19 11:28 Creatinine 0.94 mg/dL (0.6-1.1) 09/09/19 11:28 Glucose 96 mg/dL (70-105) 09/09/19 11:28 Calcium 8.7 mg/dL (7.8-10.44) 09/09/19 11:28 Total Bilirubin 0.3 mg/dL (0.2-1.2) 09/09/19 11:28 AST 23 U/L (5-34) 09/09/19 11:28 ALT 20 U/L (8-55) 09/09/19 11:28 Alkaline Phosphatase 71 U/L (40-110) 09/09/19 11:28 CK-MB (CK-2) 0.9 ng/mL (0-6.6) 09/09/19 11:28 Troponin I 0.045 ng/mL (< 0.028) H 09/09/19 16:02 Serum Total Protein 5.9 g/dL (6.0-8.3) L 09/09/19 11:28 Albumin 3.5 g/dL (3.5-5.0) 09/09/19 11:28 Laboratory Tests 09/09/19 11:28 Troponin I 0.063 H - EKG Interpretation EKG: NSR. - Radiology Interpretation Chest x-ray Status: report reviewed by me CT scan - chest Status: report reviewed by me Hospitalist H&P A/P - Plan Plan: Impression: Chest pain COPD HTN - stable TAA - stable Tobacco dependence Alcohol abuse Chronic back pain- stable Plan: desk monitor Trend troponins Check BNP, Mag, lipase, Lipid profile continue ASA Order Echocardiogram Consult cardiology NPO after midnight Light IV hydration. Resume home meds ASE protocol Smoking cessation GI prophylaxis Get BMP and CBC in AM Full [place], Juan Diego VILA
[2019-09-09 17:28] LABS: Magnesium 1.7 mg/dL (1.6-2.6)
[2019-09-09] MEDS ORDERED: Simethicone Chewable 80 MG TAB PO PRN (19:06)
[2019-09-09] MEDS ORDERED: Lidocaine 2% Viscous Solution 10 ML, Aluminum & Magnesium Hydroxide 30 ML SSW SCH (19:15)
[2019-09-09 19:40] LABS: CKMB 0.8 ng/mL (0-6.6)
[2019-09-09] MEDS: Metoprolol Tartrate 25 MG TAB PO SCH (19:54)
[2019-09-09] MEDS: Mometasone/Formoterol 120 PUFF INHALER INH SCH (20:28)
[2019-09-09] MEDS: Acetaminophen 325 MG TAB PO PRN (20:35)
[2019-09-09] MEDS ORDERED: Famotidine/PF 20 mg/2ml Vial SLOW IVP SCH (21:00)
[2019-09-10 04:52] LABS: #Basophils 0.1 thou/uL (0.0-0.2); #Eosinphils 0.2 thou/uL (0.0-0.7); #Lymphocytes 2.5 thou/uL (1.20-3.40); #Neutrophils 3.8 thou/uL (1.40-6.50); %Basophils 1.2 % (0.0-1.0); %Eosinophils 2.8 % (0.0-10.0); %Lymphocytes 33.3 % (21.0-51.0); %Neutrophils 49.7 % (42.0-75.0); Hemoglobin 11.4 g/dL (12.0-16.0); Mean Corpuscular HGB CONC 33.7 g/dL (32.0-36.0); Mean Corpuscular Hemoglobin 31.2 pg (27.0-31.0); Mean Corpuscular Volume 92.5 fL (78.0-98.0); Mean Platelet Volume 6.8 fL (7.4-10.4); Platelet Count 185 thou/uL (130-400); RBC Distribution Width 11.8 % (11.5-14.5); Red Blood Cell (RBC) Count 3.67 mill/uL (4.20-5.40); White Blood Cell (WBC) Count 7.7 thou/uL (4.8-10.8)
[2019-09-10 05:17] LABS: Anion Gap 6 mmol/L (10-20); BUN (Urea Nitrogen) 13 mg/dL (9.8-20.1); Calc. Creatinine Clearance 0 mL/min (70-130); Calcium 7.9 mg/dL (7.8-10.44); Carbon Dioxide 27 mmol/L (22-29); Cardiac Risk 2.6 (Less than 4.5); Chloride 112 mmol/L (98-107); Cholesterol 163 mg/dl (< 200 Desired); Estimated GFR-MDRD Greater than 90; Glucose 97 mg/dL (70-105); HDL Cholesterol 62 mg/dL (>60 Neg Risk); LDL Cholesterol, Calculated 72 mg/dL; Potassium 4.4 mmol/L (3.5-5.1); Sodium 141 mmol/L (136-145); Triglycerides 144 mg/dL (Less than 150)
[2019-09-10] MEDS: Acetaminophen 325 MG TAB PO PRN (06:16)
[2019-09-10] MEDS: Mometasone/Formoterol 120 PUFF INHALER INH SCH (07:32)
[2019-09-10 08:00] VITALS: TEMP 98
[2019-09-10] MEDS ORDERED: Famotidine 20 MG TAB PO SCH (09:00)
[2019-09-10] MEDS ORDERED: Aspirin 81 mg Enteric Coated Tablet PO SCH (09:00)
--- NOTE | 2019-09-10 10:43 | CON ---
DATE OF CONSULTATION: HISTORY OF PRESENT ILLNESS: This patient is a pleasant 59-year-old woman, who presents for evaluation of left-sided chest discomfort. The patient has a previous history of a lung carcinoma. The patient was seen in April of 2018 with atypical chest pain. The patient states she was doing well until about three months ago. The patient started feeling left-sided chest pain that lasts 10 to 15 minutes. The patient becomes short of breath. The patient presented to the emergency room with recurrent chest discomfort. PAST MEDICAL HISTORY: 1. Lung carcinoma. 2. Hypertension. 3. COPD. PAST SURGICAL HISTORY: Lobectomy, breast surgery, and hysterectomy. SOCIAL HISTORY: Long history of tobacco abuse. ALLERGIES: NO KNOWN DRUG ALLERGIES. FAMILY HISTORY: No strong family history of heart disease. REVIEW OF SYSTEMS: Ten-point system otherwise unremarkable. PHYSICAL EXAMINATION: GENERAL: Well-developed woman, in no acute distress. VITAL SIGNS: Blood pressure 129/80. NECK: No jugular venous distention. LUNGS: Clear to auscultation. HEART: Regular rate and rhythm. Normal S1 and S2. No murmurs. ABDOMEN: Nondistended. EXTREMITIES: Showed no edema. VASCULAR: Radial pulses are 2+. LABORATORY DATA: Sodium 141, potassium 4.4, chloride 112, bicarbonate 27, BUN 13, and creatinine 0.76. Troponin 0.051. White blood cell count is 7.7, hemoglobin 11.4, hematocrit 33.9, and platelets 185. EKG revealed normal sinus rhythm, nonspecific T-wave abnormality. IMPRESSION AND PLAN: 1. Chest pain with some features suggestive of angina. 2. Hypertension. 3. History of atrial fibrillation. 4. History of lung carcinoma. This patient presents with chest pain with some features suggestive of angina. She will undergo a Cardiolite stress test. The patient is being treated with aspirin. I would highly recommend the patient to discontinue smoking. Further recommendation will follow. Job ID: [id number] [facility]
[2019-09-10] MEDS: Metoprolol Tartrate 25 MG TAB PO SCH (13:42)
--- NOTE | 2019-09-10 14:48 | NM ---
MYOCARDIAL PERFUSION SCAN: The patient was given 10 mCi of Technetium sestamibi for rest imaging and 30 mCi for stress imaging. INDICATION: Chest pain. TECHNIQUE: The patient was stressed according to LexiScan protocol. The left ventricle was imaged with SPECT im aging and with attenuation correction images obtained. FINDINGS: Normal activity is seen on stress and rest images. No evidence of reversible ischemia. Normal wall motion. Ejection fraction is recorded at over 80%. IMPRESSION: Negative sestamibi stress test. POS: GONZALES
[2019-09-10 14:59] VITALS: BP 140/68
[2019-09-10] MEDS ORDERED: Regadenoson 0.4 MG/5 ML SYRINGE ONE (15:13)
--- NOTE | 2019-09-11 07:55 | DIS ---
DATE OF ADMISSION: 09/09/2019 DATE OF DISCHARGE: 09/10/2019 PRIMARY CARE PROVIDER: [facility]. DISPOSITION: Discharged home. FINAL DIAGNOSES: Noncardiac chest pain; coronary artery disease; hypertension; dyslipidemia; and diabetes mellitus, type 2. DISCHARGE MEDICATIONS: Same as her home medicines. 1. Metoprolol 25 mg twice a day. 2. Symbicort 2 puffs b.i.d. 3. Albuterol nebulizer 1 inhalation q.6 hours p.r.n. 4. Ibuprofen 400 mg p.o. daily. 5. Aspirin 81 mg a day. 6. Ventolin 2 puffs q.6 hours p.r.n. ALLERGIES: NO KNOWN DRUG ALLERGIES. DIET: Heart-healthy. PENDING AT THE TIME OF DISCHARGE: Nothing. CODE STATUS: Full. HOSPITAL COURSE: The patient was admitted to [facility] through [facility] with chest pain, history of coronary artery disease, etc. She was seen and evaluated. EKG revealed normal sinus rhythm. No acute abnormality. Laboratory; CBC, normal. Comprehensive metabolic profile, normal except for a chloride of 109. Cardiac enzymes; troponin 0.063, 0.045, and 0.051. Nuclear medicine cardiac stress test was negative for ischemia. The patient was seen in consultation by Dr. Colin. I have discussed the findings with the patient. She is comfortable with going home. She is being discharged. I have added aspirin 81 mg to her regimen as she has a history of coronary artery disease and is not on aspirin. She has been asked to see her PCP in 3 days as previously mentioned. Job ID: [id number]
== END 2019-09-10 15:46 | disposition home or self-care (01) ==
LOC: ERS 11:03 → 2SW 15:53
PROVIDERS: ADMIT Emergency Medicine; ATTEND Emergency Medicine
DX: R07.89 Other chest pain (principal); I25.10 Atherosclerotic heart disease of native coronary artery without angina pectoris; I10 Essential (primary) hypertension; E78.5 Hyperlipidemia, unspecified; E11.9 Type 2 diabetes mellitus without complications; J44.9 Chronic obstructive pulmonary disease, unspecified; I71.2 Thoracic aortic aneurysm, without rupture; F17.210 Nicotine dependence, cigarettes, uncomplicated; F10.10 Alcohol abuse, uncomplicated; G89.29 Other chronic pain; M54.5 Low back pain; F41.9 Anxiety disorder, unspecified; F32.9 Major depressive disorder, single episode, unspecified; I48.91 Unspecified atrial fibrillation; Z85.118 Personal history of other malignant neoplasm of bronchus and lung; Z79.899 Other long term (current) drug therapy; Z90.2 Acquired absence of lung [part of]
CPT/HCPCS: 36415; 71045; 71275; 72191; 74175; 78452; 80048; 80053; 80061; 82553; 83690; 83735; 83880; 84443; 84484; 85025; 93005; 93010; 93017; 93306; 94640; 96360; 96361; 96374; A9500; G0378; J2785; J7620; Q9967; S0028

== ENCOUNTER 2019-10-17 07:06 | Emergency (ER) | payer BC | END 2019-10-17 08:35 | disposition home or self-care (01) | LOC: ERS 07:06 | DX: J10.1 Influenza due to other identified influenza virus with other respiratory manifestations (principal); J44.9 Chronic obstructive pulmonary disease, unspecified; F17.210 Nicotine dependence, cigarettes, uncomplicated; I10 Essential (primary) hypertension | CPT/HCPCS: 87804; 99283 ==

== ENCOUNTER 2020-04-25 20:22 | Observation (INO) | payer BC, OTHER ==
--- NOTE | 2020-04-25 20:55 | RAD ---
Exam: Chest one view HISTORY:Chest pain. Shortness of breath. Comparison: 09/09/2019 FINDINGS: Cardiac silhouette: Normal Aorta: Unremarkable Pulmonary vessels: Normal Costophrenic angles: Clear LUNGS: No masses or consolidation. Pneumothorax: None Osseous abnormalities: None IMPRESSION: No acute cardiopulmonary process.
[2020-04-25] MEDS ORDERED: Albuterol 200 PUFF (6.7GM INHALER) ONE (21:00)
[2020-04-25 21:06] LABS: #Basophils 0.1 thou/uL (0.0-0.2); #Eosinphils 0.7 thou/uL (0.0-0.7); #Lymphocytes 2.9 thou/uL (1.20-3.40); #Monocytes 1.5 thou/uL (0.11-0.59); #Neutrophils 8.8 thou/uL (1.40-6.50); %Basophils 0.8 % (0.0-1.0); %Eosinophils 5.3 % (0.0-10.0); %Lymphocytes 20.8 % (21.0-51.0); %Monocytes 10.5 % (0.0-10.0); %Neutrophils 62.6 % (42.0-75.0); Hemoglobin 13.5 g/dL (12.0-16.0); Mean Corpuscular HGB CONC 33.2 g/dL (32.0-36.0); Mean Corpuscular Hemoglobin 29.9 pg (27.0-31.0); Mean Platelet Volume 7.4 fL (7.4-10.4); Platelet Count 161 thou/uL (130-400); RBC Distribution Width 11.6 % (11.5-14.5); Red Blood Cell (RBC) Count 4.52 mill/uL (4.20-5.40); White Blood Cell (WBC) Count 14.1 thou/uL (4.8-10.8)
[2020-04-25 21:24] LABS: ALT (SGPT) 13 U/L (8-55); AST (SGOT) 24 U/L (5-34); Albumin 3.1 g/dL (3.4-4.8); Alkaline Phosphatase 57 U/L (40-110); Anion Gap 16 mmol/L (10-20); BUN (Urea Nitrogen) 17 mg/dL (9.8-20.1); Bilirubin, Total 0.6 mg/dL (0.2-1.2); Calc. Creatinine Clearance 0 mL/min (70-130); Calcium 8.1 mg/dL (7.8-10.44); Carbon Dioxide 19 mmol/L (23-31); Chloride 112 mmol/L (98-107); Estimated GFR-MDRD 87; Globulin 2.2 g/dL (2.4-3.5); Glucose 88 mg/dL (80-115); Potassium 4.5 mmol/L (3.5-5.1); Protein, Total 5.3 g/dL (6.0-8.3); Sodium 142 mmol/L (136-145)
[2020-04-25] MEDS ORDERED: methylPREDNISolone Sod Succ/PF 125 MG/2 ML VIAL ONE (21:28)
[2020-04-25 21:44] LABS: CKMB 2.1 ng/mL (0-6.6)
[2020-04-25] MEDS ORDERED: Aspirin Chewable 81 MG TAB ONE (22:41)
[2020-04-25 23:34] LABS: SARS-CoV-2 NAA Rapid Test Not Detected (NotDetected)
[2020-04-26] MEDS ORDERED: HYDROcodone/Acetaminophen 5/325 mg Tablet PO PRN ×2 (00:56)
[2020-04-26] MEDS ORDERED: Acetaminophen 325 MG TAB PO PRN ×2 (00:56→01:20)
[2020-04-26] MEDS ORDERED: Ondansetron ODT 4 MG TAB SL PRN (00:56)
[2020-04-26] MEDS ORDERED: Ondansetron PF 4 MG/2 ML Vial IVP PRN (00:56)
[2020-04-26 01:03] LABS: Troponin I 0.175 ng/mL (< 0.028)
[2020-04-26] MEDS ORDERED: Guaifenesin DM 100-10/5 ML UDCUP PO PRN (01:14)
[2020-04-26] MEDS ORDERED: hydrALAZINE 20 MG/ML VIAL SLOW IVP PRN (01:19)
[2020-04-26 02:33] VITALS: BMI 21.4
[2020-04-26 05:20] LABS: #Eosinphils 0.1 thou/uL (0.0-0.7); #Lymphocytes 0.8 thou/uL (1.20-3.40); #Monocytes 0.1 thou/uL (0.11-0.59); #Neutrophils 6.2 thou/uL (1.40-6.50); %Basophils 0.2 % (0.0-1.0); %Eosinophils 0.8 % (0.0-10.0); %Lymphocytes 11.4 % (21.0-51.0); %Monocytes 1.1 % (0.0-10.0); %Neutrophils 86.5 % (42.0-75.0); Hemoglobin 12.9 g/dL (12.0-16.0); Mean Corpuscular Hemoglobin 30.9 pg (27.0-31.0); Mean Corpuscular Volume 90.9 fL (78.0-98.0); Mean Platelet Volume 7.6 fL (7.4-10.4); Platelet Count 161 thou/uL (130-400); RBC Distribution Width 11.6 % (11.5-14.5); Red Blood Cell (RBC) Count 4.18 mill/uL (4.20-5.40); White Blood Cell (WBC) Count 7.1 thou/uL (4.8-10.8)
[2020-04-26 05:46] LABS: Anion Gap 11 mmol/L (10-20); BUN (Urea Nitrogen) 20 mg/dL (9.8-20.1); Calc. Creatinine Clearance 59 mL/min (70-130); Calcium 8.2 mg/dL (7.8-10.44); Carbon Dioxide 21 mmol/L (23-31); Chloride 111 mmol/L (98-107); Estimated GFR-MDRD 86; Glucose 135 mg/dL (80-115); Potassium 4.4 mmol/L (3.5-5.1); Sodium 139 mmol/L (136-145)
[2020-04-26 05:47] LABS: Troponin I 0.246 ng/mL (< 0.028)
--- NOTE | 2020-04-26 07:51 | HP ---
REASON FOR ADMISSION: Shortness of breath. HISTORY OF PRESENT ILLNESS: This is a 60-year-old female patient who is presenting with shortness of breath, history going back to 3 days before her presentation. The patient is known to have COPD and continues to smoke and for the past 3 days she has been more short of breath than usual. Using more of her inhalers without any relief and today her shortness of breath was so severe that she felt that she is going to faint. That is why she came to the ER. She did receive neb treatments and IV Solu-Medrol. Currently feeling much better. The patient denies fevers, denies chills. She is coughing, producing whitish phlegm. Denies sick contacts. Denies recent travel. The patient does complain of chest pain, but it is only when she coughs. The chest pain is reproducible with palpation. I did review her records and the patient was admitted to our hospital in August for a chest pain. She did have a bump in her troponin. She did undergo a nuclear medicine cardiac stress test that was negative for ischemia. She was seen by Cardiology. She was started on a baby aspirin and discharged home. PAST MEDICAL HISTORY: 1. Coronary artery disease. 2. High blood pressure. 3. COPD. 4. History of lung cancer, status post lobectomy. 5. Osteoarthritis. 6. Chronic back pain. 7. Hysterectomy. 8. Trigger finger release. SOCIAL HISTORY: She continues to smoke 5 cigarettes a day. She drinks alcohol frequently during the week, but denies being an alcoholic. ALLERGIES: NO KNOWN DRUG ALLERGY. FAMILY HISTORY: Negative for premature coronary artery disease. PHYSICAL EXAMINATION: GENERAL: Awake, alert, and oriented, does not appear in distress. VITAL SIGNS: Her blood pressure is 144/85, heart rate of 74, temperature is 98.7, and saturating 98% on room air. HEENT: Head is nontraumatic and normocephalic. Pupils are equal and reactive. Extraocular movements are intact. Nonicteric sclerae. Well injected conjunctivae. Oral mucosa normal. Nasal mucosa normal. NECK: Supple. No adenopathy. No murmur. Thyroid is not palpable. Trachea is midline. No supraclavicular adenopathy. CARDIAC: S1 and S2, regular. Faint systolic murmur heard. No displacement of PMI. LUNGS: End expiratory wheezing bilaterally. ABDOMEN: Bowel sounds are positive, nontender abdomen. No hepatomegaly. EXTREMITIES: No lower extremity edema. No cyanosis. NEUROLOGIC: Cranial nerves 2 through 12 within normal limits. Normal motor function. Normal sensory function. Normal reflexes. LABORATORY DATA: Blood work shows WBC of 14.1, hemoglobin of 13.5, platelets of 161, and lymphocyte count 20%. Sodium 142, potassium 4.5, and bicarb of 19. Troponin initially 0.068, repeat 0.175. COVID-19 negative. Chest x-ray shows no active disease. EKG shows no ST-segment changes. ASSESSMENT AND PLAN: This is a 60-year-old female patient presenting with shortness of breath secondary to chronic obstructive pulmonary disease exacerbation. Pulmonary: The patient will be started on IV Solu-Medrol and neb treatments. Cardiac: The patient has indeterminate troponin, continue to trend it. She will be monitored on telemetry since she recently had a stress test that was negative. I would not order another one. She is currently on aspirin, so we will continue with that and we will provide her with blood pressure control. For DVT prophylaxis, she will be on SCDs and Lovenox. Job ID: [id number]
[2020-04-26 08:11] VITALS: BP 129/78; TEMP 97.9
[2020-04-26] MEDS ORDERED: Metoprolol Tartrate 25 MG TAB PO SCH (09:00)
[2020-04-26] MEDS ORDERED: Aspirin 325 MG TAB PO SCH (09:00)
[2020-04-26] MEDS ORDERED: Enoxaparin Sodium 40 MG/0.4 ML SYRINGE SC SCH (09:00)
[2020-04-26] MEDS ORDERED: Prevnar 13-Val Conj/PF 0.5 ML SYRINGE IM ONE (09:00)
[2020-04-26] MEDS ORDERED: Aspirin 81 mg Enteric Coated Tablet PO SCH (09:00)
[2020-04-26] MEDS ORDERED: methylPREDNISolone Sod Succ/PF 125 MG/2 ML VIAL IVP SCH (09:00)
--- NOTE | 2020-04-27 12:59 | DIS ---
DATE OF ADMISSION: 04/25/2020 DATE OF DISCHARGE: 04/26/2020 DISCHARGE DISPOSITION: To home. PRIMARY DISCHARGE DIAGNOSES: Chronic obstructive pulmonary disease exacerbation, resolved; chest pain, resolved. SECONDARY DISCHARGE DIAGNOSES: Hypertension, history of lung cancer with prior lobectomy, and ongoing tobacco usage. PROCEDURES DONE DURING HOSPITALIZATION: The patient has had chest x-ray done, which showed no acute cardiopulmonary abnormality. H and H 12 and 38, platelet count 161. BUN 20, creatinine 0.8. COVID-19 PCR was not detected. DISCHARGE MEDICATIONS: 1. Albuterol nebulizer q.6 hourly p.r.n. 2. Aspirin 81 mg p.o. daily. 3. Prednisone 20 mg daily for another 3 days. 4. Lopressor 25 mg twice daily. 5. Motrin p.r.n. ALLERGIES: NO KNOWN DRUG ALLERGIES. DISCHARGE PLAN: The patient to follow up with her primary care physician at [facility] in 1 week. She has also been advised to follow up with Dr. Johnson, her cook helper preserves, in view of prior history of lung cancer. BRIEF COURSE DURING HOSPITALIZATION: The patient initially came in with complaints of shortness of breath. She had trouble breathing due to increased humidity from the last 2 days in [place] in [facility]. The patient also has ongoing smoking issue as well. In view of this history, she was placed under observation on telemetry. The patient has had a nuclear stress test done in the early part of this year, which was negative. Ms. Hernandez was breathing comfortable and was wanting to go home. In view of her rapid improvement, she is being discharged home. She is advised and counseled not to smoke. She was given prescription for prednisone for another 3 days. She is hemodynamically stable and will be shortly discharged home. Please note, I have seen and examined the patient prior to discharge. Job ID: [id number]
== END 2020-04-26 10:51 | disposition home or self-care (01) ==
LOC: ERS 20:22 → 2SW 23:55
PROVIDERS: ADMIT Internal Medicine; ATTEND Internal Medicine
DX: J44.1 Chronic obstructive pulmonary disease with (acute) exacerbation (principal); R07.9 Chest pain, unspecified; I10 Essential (primary) hypertension; F17.210 Nicotine dependence, cigarettes, uncomplicated; I25.10 Atherosclerotic heart disease of native coronary artery without angina pectoris; M19.90 Unspecified osteoarthritis, unspecified site; G89.29 Other chronic pain; M54.9 Dorsalgia, unspecified; Z85.118 Personal history of other malignant neoplasm of bronchus and lung; Z79.82 Long term (current) use of aspirin; Z79.899 Other long term (current) drug therapy; Z90.2 Acquired absence of lung [part of]; Z20.828 Contact with and (suspected) exposure to other viral communicable diseases
CPT/HCPCS: 36415; 71045; 80048; 80053; 82553; 83880; 84484; 85025; 93005; 94640; 96372; 96374; 96376; G0378; J1650; J2930; J7620; U0002

== ENCOUNTER 2020-05-05 10:16 | Outpatient (CLI) | payer BC ==
--- NOTE | 2020-05-05 10:31 | RAD ---
2 view chest: [05/05/2020] Comparison:04/25/2020 HISTORY: Shortness of breath FINDINGS: Postoperative clips are seen in the left suprahilar region. No pneumothorax or pleural flui d. No focal consolidation or alveolar edema. IMPRESSION: No acute findings.
== END 2020-05-05 10:17 | disposition home or self-care (01) ==
LOC: BICRAD 10:16
PROVIDERS: ATTEND Internal Medicine Critical Care Medicine
DX: R06.00 Dyspnea, unspecified (principal)
CPT/HCPCS: 71046

== ENCOUNTER 2020-05-08 14:08 | Inpatient (IN) | payer BC, OTHER ==
[~2020-05-08 14:08] MED LIST: Iopamidol-370 76% 500 ML 1 ML ONE
--- NOTE | 2020-05-08 14:34 | RAD ---
Chest AP view INDICATION: Chest pain COMPARISON: May 05, 2020 FINDINGS: Lungs: The lungs are clear Cardiac silhouette: The cardiomediastinal silhouette appears within normal limits. Pulmonary vasculature: Normal Pleural spaces: No pleural effusion or pneumothorax is demonstrated. Upper abdomen: No abnormality seen. Osseous structures: No acute osseous abnormality. Additional findings: None. IMPRESSION: No acute cardiopulmonary abnormality.
[2020-05-08] MEDS ORDERED: Fentanyl 100 MCG/2 ML VIAL ONE (14:41)
[2020-05-08 14:48] LABS: Hemoglobin 14.8 g/dL (12.0-16.0); Mean Corpuscular HGB CONC 33.1 g/dL (32.0-36.0); Mean Corpuscular Hemoglobin 30.7 pg (27.0-31.0); Mean Corpuscular Volume 92.8 fL (78.0-98.0); Mean Platelet Volume 7.5 fL (7.4-10.4); Platelet Count 142 thou/uL (130-400); RBC Distribution Width 12.1 % (11.5-14.5); Red Blood Cell (RBC) Count 4.82 mill/uL (4.20-5.40); White Blood Cell (WBC) Count 20.1 thou/uL (4.8-10.8)
[2020-05-08 15:05] LABS: ALT (SGPT) 18 U/L (8-55); AST (SGOT) 18 U/L (5-34); Albumin 3.2 g/dL (3.4-4.8); Alkaline Phosphatase 52 U/L (40-110); Anion Gap 13 mmol/L (10-20); BUN (Urea Nitrogen) 20 mg/dL (9.8-20.1); Bilirubin, Total 0.3 mg/dL (0.2-1.2); Calc. Creatinine Clearance 0 mL/min (70-130); Carbon Dioxide 20 mmol/L (23-31); Chloride 111 mmol/L (98-107); Estimated GFR-MDRD 77; Globulin 2.1 g/dL (2.4-3.5); Glucose 110 mg/dL (80-115); Potassium 3.7 mmol/L (3.5-5.1); Protein, Total 5.3 g/dL (6.0-8.3); Sodium 140 mmol/L (136-145)
[2020-05-08 15:07] LABS: Band 14 % (5-11); Lymphocytes 8 % (21-51); MDiff Complete? YES; Monocytes 3 % (0-10); Neutrophil 64 % (42-75); Platelet Morphology Comment Appears Adequate; Polychromasia SLIGHT = 2-3 cells (100X) (0-2/hpf); Reactive Lymphocytes 11 % (0-10); Target Cells SLIGHT = 2-5 cells (100X) (0-1/hpf)
--- NOTE | 2020-05-08 15:45 | CT ---
CT PULMONARY ANGIOGRAM WITH IV CONTRAST AND 3-D POSTPROCESSING: HISTORY:Chest pain FINDINGS: There is good contrast opacification of the pulmonary arterial vasculature without filling defects to suggest pulmonary embolism. The thoracic aorta is not satisfactorily opacified. The ectatic ascending thoracic aorta is stable me asuring 4.1 cm since 01/19/2017. No pleural or pericardial effusions are seen. Postop changes are seen in the left hilum. No pneumotho races, focal areas of consolidation or lung nodules are noted. No osteolytic or osteoblastic lesions are noted. Upper abdominal tomograms demonstrate are unremarkable. IMPRESSION: No CT evidence of pulmonary embolism.
[2020-05-08] MEDS ORDERED: Aspirin Chewable 81 MG TAB ONE (15:59)
[2020-05-08] MEDS ORDERED: Lidocaine 4% Cream 5 GM TUBE w/ Tegaderm ONE (15:59)
--- NOTE | 2020-05-08 16:39 | PDOC.HHP ---
Hospitalist HPI - History of Present Illness Chest pain History of Present Illness: This is a 60-year-old female patient with a history of lung cancer status post lobectomy, COPD, who was recently discharged on 04/27/2020 on account of COPD exacerbation. She was at home today when she noticed right sided chest pain extending to right upper quadrant pain occurred while she was lying down. It was severe about 10/10 in intensity. It was piercing in nature nonradiating. No apparent exacerbation no relieving factors. Pain did not seem to be aggravated by inspiration. She notes that the pain has been alternating between her right and the left chest for the past several weeks. She also notes that her industrial registered nurse wanted to do a cardiac catheterization however this has never been been done. . On her last admission she saw Dr. Colin who recommended a stress test. She had a nuclear stress test on 09/02/2019 which was negative. Previous echo on 09/10/2019 showed EF of 55 to 60% with normal left atrial size, possible bicuspid aortic valve with mild right regurgitation She notes mild left lower quadrant pain as well. He denies any dysuria frequency. No constipation or diarrhea. She took nitroglycerin which also did not help. She came to the ED for further evaluation. She has a history of hypertension however no hyperlipidemia or diabetes mellitus. He is an ongoing chronic smoker for about the past 4 years average a pack a day. No sedentary lifestyle, no recent long distance travel however had recent admission She was tachypneic on arrival. On presentation due to concerns for PE she had a CT scan which revealed no pulmonary embolism. Noted stable ectatic ascending aorta at 4.1 cm. CBC however noted elevated WBC of 20.1, troponin was 0.014, She was started on aspirin and fentanyl injection for pain at presentation with improvement prior to my evaluation. Hospitalist team was consulted for admission. Hospitalist ROS - Review of Systems Constitutional: denies: fever, chills, sweats Respiratory: denies: cough, shortness of breath, hemoptysis, SOB with excertion Cardiovascular: reports: chest pain. denies: palpitations, orthopnea, paroxysmal noc. dyspnea, edema Gastrointestinal: denies: nausea, vomiting, abdominal pain, diarrhea, constipation Genitourinary: denies: dysuria, frequency, incontinence Neurological: denies: weakness, numbness, incoordination, change in speech - Medication Medications: Medications Albuterol nebulization Aspirin 81 mg daily Metoprolol titrated for milligrams twice daily Ventolin inhaler 60-2 puffs every 6 as needed Allergies: No known drug allergies Hospitalist History - Past Medical History Musculoskeletal: reports: Chronic low back pain (takes OTC tylenol) Endocrine: reports: no pertinent history Dermatology: reports: no pertinent history - Past Surgical History Past Surgical History: reports: Breast Biopsy (Left lumpectomy), Hysterectomy, Other (Left partial lobectomy 03/30, ) - Social History Alcohol: reports: Heavy (6 pack per day) Drugs: reports: none Occupation: disabled - Exam General - other findings: Patient is awake and alert. No acute distress. Eye - other findings: No pallor, no jaundice Neck - other findings: No JVD, no lymphadenopathy Heart - other findings: S2 present and normal. No murmurs gallops or rubs Respiratory - other findings: Air entry adequate bilaterally. Occasional wheezing. Gastrointestinal: normal bowel sounds, no hepatomegaly, no splenomegaly Gastrointestinal - other findings: Left lower quadrant tenderness. No rebound tenderness or guarding. Extremities - other findings: No edema. Hospitalist Results - Labs Result Diagrams: 05/08/20 14:36 05/08/20 14:36 Lab results: WBC 20.1 thou/uL (4.8-10.8) H 05/08/20 14:36 Hgb 14.8 g/dL (12.0-16.0) 05/08/20 14:36 Hct 44.7 % (36.0-47.0) 05/08/20 14:36 MCV 92.8 fL (78.0-98.0) 05/08/20 14:36 Plt Count 142 thou/uL (130-400) 05/08/20 14:36 Band Neuts % (Manual) 14 % (5-11) H 05/08/20 14:36 Sodium 140 mmol/L (136-145) 05/08/20 14:36 Potassium 3.7 mmol/L (3.5-5.1) 05/08/20 14:36 Chloride 111 mmol/L (98-107) H 05/08/20 14:36 Carbon Dioxide 20 mmol/L (23-31) L 05/08/20 14:36 BUN 20 mg/dL (9.8-20.1) 05/08/20 14:36 Creatinine 0.90 mg/dL (0.6-1.1) 05/08/20 14:36 Glucose 110 mg/dL (80-115) 05/08/20 14:36 Calcium 8.0 mg/dL (7.8-10.44) 05/08/20 14:36 Total Bilirubin 0.3 mg/dL (0.2-1.2) 05/08/20 14:36 AST 18 U/L (5-34) 05/08/20 14:36 ALT 18 U/L (8-55) 05/08/20 14:36 Alkaline Phosphatase 52 U/L (40-110) 05/08/20 14:36 Troponin I 0.014 ng/mL (< 0.028) 05/08/20 14:36 Serum Total Protein 5.3 g/dL (6.0-8.3) L 05/08/20 14:36 Albumin 3.2 g/dL (3.4-4.8) L 05/08/20 14:36 Hospitalist H&P A/P - Plan Plan: This is a 60-year-old female patient with a history of recurrent chest pain, lung cancer, COPD and hypertension who presents with a days history of right- sided chest pain Chest pain Resolved at the time of my evaluationreceived fentanyl Pain is mainly right-sided however does have alternating left-sided chest pain. This is not typical however given concerns of coronary disease in the past and negative stress test, Concerns would be ruled out with CTA We will admit for cardiac evaluation in the morning PRN nitroglycerin Aspirin 81 mg daily Cardiology evaluation in the morning Right upper quadrant pain No indication of hepatobiliary disease on CMP Upper abdominal imaging on CTA was also negative However will do right upper quadrant ultrasound to rule out any hepatobiliary condition. Possible left colitis. Patient has left lower quadrant tenderness on palpation with no rebound tenderness Also has a leukocytosis of unclear etiology We will start her on ceftriaxone and metronidazole Given her recent scan with contrast will hold scanning for now If no improvement in the a.m. we will consider scanning. Leukocytosis White blood cells above 20 Unclear cause possible colitis Could also be UTI given right iliac fossa pain However has no dysuria We will check UA Covered on ceftriaxone for now will monitor. Mild COPD exacerbation Patient is tachypneic with mild wheezing Duo nebs Steroids Antibiotics as above Monitor. Thoracic aortic aneurysm Stable at 4.1 We will monitor VT prophylaxisLovenox
[2020-05-08 18:13] VITALS: BMI 21.3
[2020-05-08 19:18] LABS: Troponin I Less than 0.010 ng/mL (< 0.028)
[2020-05-08] MEDS: Acetaminophen 325 MG TAB PO PRN (20:37)
[2020-05-08 20:38] LABS: Bacteria/HPF None Seen HPF (None Seen); Bilirubin Negative (Negative); Blood, Urine Negative (Negative); Clarity Clear (Clear); Glucose, Urine (Dipstick) 300 mg/dL (Negative); Ketone, Urine Negative (Negative); Leukocyte Negative Leu/uL (Negative); Nitrite Negative (Negative); Protein, Urine (Dipstick) Negative (Neg-Trace); RBC/HPF 0-3 HPF (0-3); Urobilinogen Normal mg/dL (Less than 2); WBC/HPF 0-3 HPF (0-3); pH, Urine 5.5 (5.0-9.0)
[2020-05-08 20:45] LABS: Urine Culture Reflex No No
[2020-05-08 21:33] LABS: Troponin I Less than 0.010 ng/mL (< 0.028)
[2020-05-08] MEDS: cefTRIAXone\\ROCEPHIN 1 GM in Sodium Chloride 0.9% 100 ML IVPB SCH (21:36)
[2020-05-09] MEDS: Acetaminophen 325 MG TAB PO PRN ×3 (00:23→21:13)
[2020-05-09 04:48] LABS: Band 6 % (5-11); Eosinophils 2 % (0-10); Hemoglobin 12.2 g/dL (12.0-16.0); Lymphocytes 10 % (21-51); MDiff Complete? YES; Mean Corpuscular HGB CONC 34.3 g/dL (32.0-36.0); Mean Corpuscular Hemoglobin 31.6 pg (27.0-31.0); Mean Corpuscular Volume 92.3 fL (78.0-98.0); Mean Platelet Volume 7.7 fL (7.4-10.4); Monocytes 7 % (0-10); Myelocyte 1 % (0-0); Neutrophil 72 % (42-75); Platelet Count 129 thou/uL (130-400); RBC Distribution Width 12.2 % (11.5-14.5); Reactive Lymphocytes 2 % (0-10); Red Blood Cell (RBC) Count 3.86 mill/uL (4.20-5.40); White Blood Cell (WBC) Count 14.2 thou/uL (4.8-10.8)
[2020-05-09 05:21] LABS: ALT (SGPT) 13 U/L (8-55); AST (SGOT) 13 U/L (5-34); Albumin 2.7 g/dL (3.4-4.8); Alkaline Phosphatase 42 U/L (40-110); Anion Gap 7 mmol/L (10-20); BUN (Urea Nitrogen) 15 mg/dL (9.8-20.1); Bilirubin, Total Less than 0.2 mg/dL (0.2-1.2); Calc. Creatinine Clearance 60 mL/min (70-130); Calcium 7.6 mg/dL (7.8-10.44); Carbon Dioxide 23 mmol/L (23-31); Chloride 113 mmol/L (98-107); Estimated GFR-MDRD 88; Globulin 1.6 g/dL (2.4-3.5); Glucose 104 mg/dL (80-115); Potassium 4.3 mmol/L (3.5-5.1); Protein, Total 4.3 g/dL (6.0-8.3); Sodium 139 mmol/L (136-145)
[2020-05-09] MEDS: predniSONE 20 MG TAB PO SCH (08:48)
[2020-05-09] MEDS: Enoxaparin Sodium 40 MG/0.4 ML SYRINGE SC SCH ×2 (08:48→11:12)
[2020-05-09] MEDS: metroNIDAZOLE 500 MG in Premix Bag 1 BAG IVPB SCH ×2 (10:36→21:14)
[2020-05-09] MEDS ORDERED: Aspirin 81 mg Enteric Coated Tablet PO SCH (11:00)
--- NOTE | 2020-05-09 11:03 | ULT ---
RIGHT UPPER QUADRANT ABDOMINAL ULTRASOUND: Date: 05/09/2020 HISTORY: Right upper quadrant abdominal pain. TECHNIQUE: Multiplanar Holland scale and color Doppler images were obtained in a right upper quadrant abdominal ult rasound. COMPARISON: CT chest dated 05/08/2020. FINDINGS: The liver is normal in echogenicity without focal lesions or intrahepatic ductal dilatation. The gall bladder is normal without stones, sludge, gallbladder wall thickening or pericholecystic fluid. The c ommon bile duct is normal, measuring 3.0 mm. Tenderness was present over the liver/gallbladder during the examination. The visualized portions of the pancreas are unremarkable. The right kidney is normal in echogenicity without hydronephrosis or calculus and measures 9.3 cm in length. IMPRESSION: No significant right upper quadrant abnormality. POS: EAA
[2020-05-09] MEDS ORDERED: metroNIDAZOLE 500 MG in Premix Bag 1 BAG IVPB SCH (14:00)
[2020-05-09] MEDS ORDERED: Metoprolol Tartrate 25 MG TAB PO SCH (14:45)
[2020-05-09 14:57] LABS: SARS-CoV-2 MS2 Positive; SARS-CoV-2 N Gene Negative; SARS-CoV-2 S Gene Negative; SARS-CoV-2 by NAA Not Detected (NotDetected); SARS-CoV-2 orf1ab Negative
--- NOTE | 2020-05-09 15:39 | PDOC.HOSPP ---
- Subjective Encounter Date: 05/09/20 Encounter Time: 11:00 Subjective: Patient was seen and examined in bed. She had alternating chest pain between left and right overnight. Denies any abdominal pain Sinus rhythm on telemetry - Objective Vital Signs & Weight: Vital Signs (12 hours) Temp Pulse Resp BP Pulse Ox 05/09/20 11:27 97.5 F L 70 16 123/73 98 05/09/20 07:17 98 F 66 16 116/79 98 05/09/20 04:05 97.9 F 72 18 114/74 97 Weight Weight 112 lb 12.8 oz I&O: 05/08/20 05/09/20 05/10/20 06:59 06:59 06:59 Intake Total 697 340 Output Total 100 Balance 597 340 Result Diagrams: 05/09/20 04:29 05/09/20 04:29 Hospitalist ROS - Medication Medications: Active Medications Generic Name Dose Route Start Last Admin Trade Name Freq PRN Reason Stop Dose Admin Acetaminophen 650 mg 05/08/20 18:20 05/09/20 08:48 Acetaminophen 325 Mg Tab PO 650 mg Q4H PRN Administration Headache/Fever/Mild Pain (1-3) Enoxaparin Sodium 40 mg 05/09/20 09:00 05/09/20 11:12 Enoxaparin Sodium 40 Mg/0.4 Ml Syringe SC 40 mg 0900 CLAIRE Administration Ceftriaxone Sodium 1 gm/ 100 mls @ 200 mls/hr 05/08/20 20:00 05/08/20 21:36 Sodium Chloride IVPB 100 mls Q24HR CLAIRE Administration Metronidazole 500 mg/ Device 100 mls @ 100 mls/hr 05/09/20 11:00 05/09/20 10:36 IVPB 100 mls Q8H CLAIRE Administration Prednisone 40 mg 05/09/20 08:00 05/09/20 08:48 Prednisone 20 Mg Tab PO 40 mg QAM-WM CLAIRE Administration - Exam General - other findings: In bed, no acute distress. Heart - other findings: S1-S2 present and normal. No murmurs gallops or rubs. Respiratory - other findings: Air entry adequate bilaterally. No rhonchi rales Gastrointestinal - other findings: Mild left lower quadrant tenderness. No rebound tenderness. Bowel sound+ Extremities - other findings: No edema Hosp A/P - Plan This is a 60-year-old female patient with a history of recurrent chest pain, reid ng cancer, COPD and hypertension who presents with a days history of right-sided chest pain Chest pain Pain improved today Cardiology consultedcardiac catheterization planned in 2 days. We will continue monitoring on telemetry. Right upper quadrant pain No lesions noted on right upper quadrant echocardiogram. We will keep monitoring Possible mild left colitis. Still has mild tenderness in left lower quadrant. Leukocytosis significantly improved on antibiotics We will continue antibioticsadd metronidazole. Mild COPD exacerbation Patient is tachypneic with mild wheezing Duo nebs Steroids Antibiotics as above Monitor. Thoracic aortic aneurysm Stable at 4.1 We will monitor VT prophylaxisLovenox
--- NOTE | 2020-05-09 18:58 | CON ---
DATE OF CONSULTATION: HISTORY OF PRESENT ILLNESS: The patient is a 60-year-old woman who presents with recurrent chest discomfort. The patient was seen initially in 2018 with left-sided chest discomfort. This was felt to be musculoskeletal discomfort. She subsequently was readmitted in August of 1999 with left-sided chest discomfort. She subsequently underwent a Cardiolite stress test revealed normal left ventricular ejection fraction of 80% with no evidence of ischemia. The patient re-presented two weeks ago with COPD exacerbation. The patient presents once again with recurrent chest discomfort. She states this is primarily a right-sided discomfort. It radiated into her back. The patient has several cardiac risk factors including hypertension and a long history of tobacco abuse. PAST MEDICAL HISTORY: 1. Lung carcinoma. 2. Hypertension. 3. COPD. PAST SURGICAL HISTORY: Lobectomy, breast surgery, and hysterectomy. SOCIAL HISTORY: Long history of tobacco abuse. ALLERGIES: NO KNOWN DRUG ALLERGIES. FAMILY HISTORY: No strong family history of heart disease. MEDICATIONS: On admission included, 1. Metoprolol 25 b.i.d. 2. Aspirin 81 daily. PHYSICAL EXAMINATION: GENERAL: A well-developed woman, in no acute distress. VITAL SIGNS: Blood pressure 116/79. NECK: No jugular venous distention. LUNGS: Clear to auscultation. HEART: Regular rate and rhythm with normal S1 and S2. ABDOMEN: Nondistended. EXTREMITIES: Showed no edema. VASCULAR: Radial pulses are 2+. LABORATORY RESULTS: Sodium 140, potassium 4.3, chloride 113, bicarb 23, BUN 15, creatinine 0.8, glucose 88. Troponin less than 0.01. White blood cell count 14.2, hemoglobin 12.2, hematocrit 35.7, platelets were 129. DIAGNOSTIC DATA: EKG normal sinus rhythm with a T-wave abnormality suggestive of possible anterior ischemia. IMPRESSION AND PLAN: 1. Recurrent chest pain. 2. History of lung carcinoma. 3. Hypertension. 4. Chronic obstructive pulmonary disease. 5. Tobacco use. The patient presents with recurrent chest discomfort. I discussed the option of medical therapy versus an invasive evaluation. The patient strongly prefers to have a cardiac catheterization for definitive diagnosis. The patient will continue on aspirin. I will check the patient's lipid panel. We will follow this patient with you through her hospitalization. Job ID: [id number] [facility]
[2020-05-09] MEDS: Metoprolol Tartrate 25 MG TAB PO SCH (21:13)
[2020-05-09] MEDS: cefTRIAXone\\ROCEPHIN 1 GM in Sodium Chloride 0.9% 100 ML IVPB SCH (21:14)
[2020-05-09] MEDS ORDERED: diphenhydrAMINE 25 MG CAP PO SCH (22:30)
[2020-05-10] MEDS: metroNIDAZOLE 500 MG in Premix Bag 1 BAG IVPB SCH ×3 (03:22→20:44)
[2020-05-10 05:09] LABS: Cardiac Risk 2.5 (Less than 4.5)
[2020-05-10] MEDS: predniSONE 20 MG TAB PO SCH (08:16)
[2020-05-10] MEDS: Metoprolol Tartrate 25 MG TAB PO SCH ×2 (08:17→20:44)
[2020-05-10] MEDS: Enoxaparin Sodium 40 MG/0.4 ML SYRINGE SC SCH (08:17)
[2020-05-10] MEDS: Aspirin 81 mg Enteric Coated Tablet PO SCH (08:17)
[2020-05-10] MEDS ORDERED: Communication Order-Pharmacy FS SCH (09:00)
[2020-05-10 09:32] LABS: #Basophils 0.1 thou/uL (0.0-0.2); #Eosinphils 0.1 thou/uL (0.0-0.7); #Lymphocytes 3.8 thou/uL (1.20-3.40); #Monocytes 1.8 thou/uL (0.11-0.59); #Neutrophils 10.7 thou/uL (1.40-6.50); %Basophils 0.7 % (0.0-1.0); %Eosinophils 0.5 % (0.0-10.0); %Lymphocytes 22.8 % (21.0-51.0); %Monocytes 10.6 % (0.0-10.0); %Neutrophils 65.3 % (42.0-75.0); Hemoglobin 12.4 g/dL (12.0-16.0); Mean Corpuscular Hemoglobin 31.4 pg (27.0-31.0); Mean Corpuscular Volume 92.3 fL (78.0-98.0); Mean Platelet Volume 7.8 fL (7.4-10.4); Platelet Count 147 thou/uL (130-400); RBC Distribution Width 12.3 % (11.5-14.5); Red Blood Cell (RBC) Count 3.95 mill/uL (4.20-5.40); White Blood Cell (WBC) Count 16.5 thou/uL (4.8-10.8)
[2020-05-10] MEDS ORDERED: Pantoprazole 40 MG VIAL IVP SCH (10:45)
[2020-05-10] MEDS: Sucralfate 1 GM TAB PO SCH ×3 (11:17→20:44)
--- NOTE | 2020-05-10 12:41 | PDOC.HOSPP ---
- Subjective Encounter Date: 05/10/20 Encounter Time: 12:00 Subjective: patient was seen and examined in bed. She complained of pain on the left side of her chest defect mass. Also has ongoing intermittent chest pain and shortness of breath. She also has epigastric pain Otherwise no acute events overnight. - Objective Vital Signs & Weight: Vital Signs (12 hours) Temp Pulse Resp BP Pulse Ox 05/10/20 11:36 98.1 F 89 16 124/75 95 05/10/20 08:30 60 18 05/10/20 07:26 97.9 F 65 19 142/90 H 98 05/10/20 04:38 98.0 F 63 14 144/80 H 98 Weight Weight 112 lb 12.8 oz I&O: 05/09/20 05/10/20 05/11/20 06:59 06:59 06:59 Intake Total 697 577 Output Total 100 Balance 597 577 Result Diagrams: 05/10/20 09:21 05/09/20 04:29 Hospitalist ROS - Medication Medications: Active Medications Generic Name Dose Route Start Last Admin Trade Name Freq PRN Reason Stop Dose Admin Acetaminophen 650 mg 05/08/20 18:20 05/09/20 21:13 Acetaminophen 325 Mg Tab PO 650 mg Q4H PRN Administration Headache/Fever/Mild Pain (1-3) Albuterol/Ipratropium 3 ml 05/08/20 18:16 05/10/20 08:30 Ipratropium/Albuterol Sulfate 3 Ml Neb NEB 3 ml Q6H PRN Administration SOB &/or Wheezing Aspirin 81 mg 05/10/20 09:00 05/10/20 08:17 Aspirin 81 Mg Enteric Coated Tablet PO 81 mg DAILY CLAIRE Administration Enoxaparin Sodium 40 mg 05/09/20 09:00 05/10/20 08:17 Enoxaparin Sodium 40 Mg/0.4 Ml Syringe SC 05/10/20 21:00 40 mg 0900 CLAIRE Administration Ceftriaxone Sodium 1 gm/ 100 mls @ 200 mls/hr 05/08/20 20:00 05/09/20 21:14 Sodium Chloride IVPB 100 mls Q24HR CLAIRE Administration Metronidazole 500 mg/ Device 100 mls @ 100 mls/hr 05/09/20 11:00 05/10/20 11:18 IVPB 100 mls Q8H CLAIRE Administration Metoprolol Tartrate 12.5 mg 05/09/20 21:00 05/10/20 08:17 Metoprolol Tartrate 25 Mg Tab PO 12.5 mg BID CLAIRE Administration Pantoprazole Sodium 40 mg 05/10/20 10:45 05/10/20 11:18 Pantoprazole 40 Mg Vial IVP 05/10/20 12:45 40 mg NOW CLAIRE Administration Prednisone 40 mg 05/09/20 08:00 05/10/20 08:16 Prednisone 20 Mg Tab PO 40 mg QAM-WM CLAIRE Administration Sucralfate 1 gm 05/10/20 11:30 05/10/20 11:17 Sucralfate 1 Gm Tab PO 1 gm ACHS CLAIRE Administration - Exam General - other findings: In bed, no acute distress. Heart - other findings: S1-S2 present and normal. No murmurs gallops or rubs. Respiratory - other findings: Entry adequate bilaterally. Gastrointestinal - other findings: Epigastric tenderness. Extremities - other findings: No edema. Skin - other findings: 5 cm lump on lateral side of left chest possible breast tissue. Tender Hosp A/P - Plan This is a 60-year-old female patient with a history of recurrent chest pain, lung cancer, COPD and hypertension who presents with a days history of right- sided chest pain Chest pain Pain improved today Still intermittent and alternating on sitecatheterization tomorrow We will continue monitoring on telemetry. Cardiology following Left-sided chest lump. About 5 cm intermittently tender freely mobile Axillary tenderness with irregular tissue palpated. Consult surgery for possible biopsygiven history of cancer May need CHIEF OF STAFF assessment for breast CA Right upper quadrant pain No lesions on right upper quadrant ultrasound scan Possible mild left colitis. Still has mild tenderness in left lower quadrant. Leukocytosis significantly improved on antibiotics We will continue antibioticsadd metronidazole. CT abdomen if no resolution noted. Mild COPD exacerbation Patient is tachypneic with mild wheezing Duo nebs Steroids Antibiotics as above Monitor. Thoracic aortic aneurysm Stable at 4.1 We will monitor VT prophylaxisLovenox
--- NOTE | 2020-05-10 13:01 | PDOC.EVN ---
Event Note - Event Note Event Note: Called to see for soft tissue mass left chest. On exam it is consistent with lipoma. Will plan excision in office at a later date. Please have her see me in the office after DC.
[2020-05-10] MEDS: cefTRIAXone\\ROCEPHIN 1 GM in Sodium Chloride 0.9% 100 ML IVPB SCH (20:43)
[2020-05-10] MEDS ORDERED: diphenhydrAMINE 25 MG CAP PO SCH (22:30)
[2020-05-11] MEDS: metroNIDAZOLE 500 MG in Premix Bag 1 BAG IVPB SCH ×2 (03:25→13:23)
[2020-05-11] MEDS: Sucralfate 1 GM TAB PO SCH ×3 (05:21→16:50)
[2020-05-11] MEDS: predniSONE 20 MG TAB PO SCH (05:21)
[2020-05-11] MEDS: Metoprolol Tartrate 25 MG TAB PO SCH (05:21)
[2020-05-11] MEDS: Aspirin 81 mg Enteric Coated Tablet PO SCH (05:21)
[2020-05-11] MEDS ORDERED: Pantoprazole 40 MG VIAL IVP SCH ×2 (09:00)
[2020-05-11] MEDS ORDERED: Iopamidol 370 76% 100 ML VIAL ONE (09:33)
[2020-05-11] MEDS ORDERED: Lidocaine 1% (PF) 30 ML VIAL ONE (11:19)
[2020-05-11] MEDS ORDERED: Midazolam HCl 2 mg/2 ml Vial ONE (12:20)
[2020-05-11 16:46] VITALS: BP 121/75; TEMP 97.6
[2020-05-11] MEDS ORDERED: Rosuvastatin 20 MG TAB PO SCH (21:00)
[2020-05-12] MEDS ORDERED: Clopidogrel Bisulfate 75 MG TAB PO SCH (09:00)
--- NOTE | 2020-05-12 11:04 | DIS ---
DATE OF ADMISSION: 05/09/2020 DATE OF DISCHARGE: 05/11/2020 DISCHARGE DIAGNOSES: 1. Chest pain. 2. Right upper quadrant pain. 3. Possible mild left colitis. 4. Mild chronic obstructive pulmonary disease exacerbation. 5. Thoracic aortic aneurysm. BRIEF HOSPITAL COURSE: This is a 60-year-old female patient with a history of recurrent chest pain, lung cancer, COPD, and hypertension, who presented with ongoing alternating right and left-sided chest pain. At the time of presentation, the pain was on the right lower chest, 9/10 in intensity, nonradiating, not relieved by food or activity. She was admitted and assessed for stress test. She, however, had had a stress test not too long ago. Cardiology was consulted and she had cardiac catheterization revealing no significant stenosis Given her abdominal pain, right upper quadrant ultrasound was done, which showed no hepatobiliary lesions. She had a mild left lower quadrant pain and was empirically treated for colitis. CT scan was not done because of the recurrent contrast she had first for CT angiogram on presentation to rule out PE and then for cardiac catheterization. She had a leukocytosis, which resolved significantly on antibiotics. Following admission, it was noted that she had a small lump on the left side of the chest wall, which was evaluated by General Surgery. This was considered to be lipoma and she was asked to follow up with General Surgery after discharge. DISCHARGE PHYSICAL EXAMINATION: GENERAL: The patient is in bed, in no acute distress. CARDIOVASCULAR: S1 and S2 present and normal. No murmurs, gallops, or rubs. ABDOMEN: Benign. EXTREMITIES: No edema. DISCHARGE CONDITION: Stable. CONSULTATIONS: 1. Cardiology: Dr. Colin. 2. Surgery: Dr. Pat. Job ID: [id number] MTDD
--- NOTE | 2020-05-12 13:30 | PQF ---
CLINICAL DOCUMENTATION CLARIFICATION FORM: Dear : Héctor Crawford MD Date / Time:___05/12/2020 Please exercise your independent, professional judgment in responding to the clarification form. Clinical indicators are provided on the bottom of this form for your review Please check appropriate box(es) to determine sequence of events: [ ] Chest pain due to HTN [ ] Chest pain due to lipoma [ ] Chest pain due to COPD exacerbation [ ] Chest pain due to Thoracic aortic aneurysm [ x ] Chest pain due to unspecified cause [ ] Other diagnosis [ ] Unable to determine Physician Signature: COLETTE Date/Time: 05/13/20 For continuity of documentation, please document condition throughout progress notes and discharge summary. Thank You. To be completed by CDI/Coding staff for physician review: Present Clinical Indicators - Signs / Symptoms / Labs Results and Location in Medical Record [ x] Presents with a days history of right sided chest pain Hospital PN, 05/10, Héctor Crawford MD [ x] Right upper quadrant pain Hospital PN, 05/10, Héctor Crawford MD [ x] Heart -[id number]- -[id number]-:- -S-1- S2 present and normal Hospital PN, 05/10, Héctor Crawford MD [ x] Left sided chest lump Hospital PN, 05/10, Héctor Crawford MD [ x] Present Risk Factors Results and Location in Medical Record [ x] Mild COPD exacerbation Hospital PN, 05/10, Héctor Crawford MD [ x] Thoracic aortic aneurysm Hospital PN, 05/10, Héctor Crawford MD [ x] HTN Hospital PN, 05/10, Héctor Crawford MD Present Treatments Results and Location in Medical Record [ x] Monitoring telemetry Hospital PN, 05/10, Héctor Crawford MD [ x] Catheterization OP report, 05/08 [ x] Albuterol Neb 05/08 CDS/Air Brake Man Signature: alena Vogelsaurabh Phone #: [phone] Date/Time:_05/12/2020 This is a permanent part of the Medical Record [facility]
== END 2020-05-11 17:32 | disposition home or self-care (01) | DRG 287 ==
LOC: ERS 14:08 → 2SW 16:13 → OBSVTOIN 05-09 11:25 → 2NO 05-09 13:46
PROVIDERS: ADMIT Student in an Organized Health Care Education/Training Program; ATTEND Student in an Organized Health Care Education/Training Program
PROC: 4A023N7 Measurement of Cardiac Sampling and Pressure, Left Heart, Percutaneous Approach (ICD-10-PCS; principal; 2020-05-11)
PROC: B2151ZZ Fluoroscopy of Left Heart using Low Osmolar Contrast (ICD-10-PCS; 2020-05-11)
PROC: B2111ZZ Fluoroscopy of Multiple Coronary Arteries using Low Osmolar Contrast (ICD-10-PCS; 2020-05-11)
DX: R07.9 Chest pain, unspecified (principal); C34.90 Malignant neoplasm of unspecified part of unspecified bronchus or lung; J44.1 Chronic obstructive pulmonary disease with (acute) exacerbation; I10 Essential (primary) hypertension; K52.9 Noninfective gastroenteritis and colitis, unspecified; I71.2 Thoracic aortic aneurysm, without rupture; C50.919 Malignant neoplasm of unspecified site of unspecified female breast; G89.29 Other chronic pain; F17.210 Nicotine dependence, cigarettes, uncomplicated; Z90.710 Acquired absence of both cervix and uterus
CPT/HCPCS: 36415; 71045; 71275; 76705; 80053; 80061; 81001; 84484; 85007; 85025; 85027; 87635; 93005; 93458; 94640; 96365; 96367; 96374; 96375; 99152; C9113; G0378; J0696; J1644; J1650; J2001; J2250; J3010; J3490; J7512; J7620; Q0163; Q9967; U0003

== ENCOUNTER 2021-04-26 10:17 | Outpatient (CLI) | payer BC | END 2021-04-26 10:18 | disposition home or self-care (01) | LOC: BICRAD 10:17 | PROVIDERS: ATTEND Internal Medicine Critical Care Medicine | DX: R06.00 Dyspnea, unspecified (principal); Z98.890 Other specified postprocedural states | CPT/HCPCS: 71046 ==

== ENCOUNTER 2021-05-24 08:35 | Observation (INO) | payer BC, MEDICARE ==
[2021-05-24] MEDS ORDERED: Morphine 4 MG/ML VIAL ONE (08:50)
[2021-05-24 09:20] LABS: #Basophils 0.1 thou/uL (0.0-0.2); #Eosinphils 0.1 thou/uL (0.0-0.7); #Lymphocytes 1.9 thou/uL (1.20-3.40); #Neutrophils 4.3 thou/uL (1.40-6.50); %Basophils 1.2 % (0.0-1.0); %Eosinophils 0.9 % (0.0-10.0); %Lymphocytes 25.8 % (21.0-51.0); %Monocytes 13.5 % (0.0-10.0); %Neutrophils 58.6 % (42.0-75.0); Hemoglobin 12.8 g/dL (12.0-16.0); Mean Corpuscular HGB CONC 33.7 g/dL (32.0-36.0); Mean Corpuscular Hemoglobin 30.5 pg (27.0-31.0); Mean Corpuscular Volume 90.5 fL (78.0-98.0); Mean Platelet Volume 7.9 fL (7.4-10.4); Platelet Count 180 thou/uL (130-400); RBC Distribution Width 11.7 % (11.5-14.5); Red Blood Cell (RBC) Count 4.19 mill/uL (4.20-5.40); White Blood Cell (WBC) Count 7.3 thou/uL (4.8-10.8)
[2021-05-24 09:49] LABS: ALT (SGPT) 24 U/L (8-55); AST (SGOT) 32 U/L (5-34); Albumin 2.9 g/dL (3.4-4.8); Alkaline Phosphatase 77 U/L (40-110); Anion Gap 13 mmol/L (10-20); BUN (Urea Nitrogen) 10 mg/dL (9.8-20.1); Bilirubin, Total 0.8 mg/dL (0.2-1.2); Calc. Creatinine Clearance 0 mL/min (70-130); Calcium 8.5 mg/dL (7.8-10.44); Carbon Dioxide 20 mmol/L (23-31); Chloride 110 mmol/L (98-107); Globulin 2.3 g/dL (2.4-3.5); Glucose 110 mg/dL (80-115); Potassium 3.5 mmol/L (3.5-5.1); Protein, Total 5.2 g/dL (5.8-8.1); Sodium 139 mmol/L (136-145)
[2021-05-24] MEDS ORDERED: Iopamidol-370 76% 500 ML 1 ML ONE (10:44)
[2021-05-24] MEDS ORDERED: Aspirin 325 mg Enteric Coated Tablet PO SCH (13:15)
[2021-05-24 13:52] LABS: Troponin I 0.047 ng/mL (< 0.028)
[2021-05-24 14:24] LABS: SARS-CoV-2 NAA Rapid Test Not Detected (NotDetected)
[2021-05-24 14:41] VITALS: BMI 19.8
[2021-05-24] MEDS: Nitroglycerin 2% Ointment 1 INCH/1 GM Packet TOP SCH ×2 (14:46→21:49)
[2021-05-24] MEDS ORDERED: Morphine 2 MG/ML VIAL SLOW IVP PRN (15:16)
[2021-05-24 15:36] LABS: Troponin I 0.079 ng/mL (< 0.028)
[2021-05-24] MEDS ORDERED: Morphine 4 MG/ML VIAL SLOW IVP PRN (16:43)
[2021-05-24] MEDS ORDERED: Acetaminophen 325 MG TAB PO PRN (17:51)
[2021-05-24 21:00] LABS: Troponin I 0.177 ng/mL (< 0.028)
[2021-05-24] MEDS ORDERED: Rosuvastatin 20 MG TAB PO SCH (21:00)
[2021-05-24] MEDS: Pantoprazole 40 MG GRANULES PACKET PO SCH (21:49)
[2021-05-24] MEDS: Metoprolol Tartrate 25 MG TAB PO SCH (21:49)
[2021-05-24] MEDS ORDERED: diphenhydrAMINE 25 MG CAP PO SCH (23:59)
[2021-05-25 05:26] LABS: Cardiac Risk 2.3 (Less than 4.5)
[2021-05-25] MEDS: Nitroglycerin 2% Ointment 1 INCH/1 GM Packet TOP SCH (05:36)
[2021-05-25] MEDS: Metoprolol Tartrate 25 MG TAB PO SCH ×2 (08:10→08:30)
[2021-05-25] MEDS: Pantoprazole 40 MG GRANULES PACKET PO SCH (08:10)
[2021-05-25 08:52] LABS: Anion Gap 12 mmol/L (10-20); BUN (Urea Nitrogen) 10 mg/dL (9.8-20.1); Calc. Creatinine Clearance 52 mL/min (70-130); Calcium 7.9 mg/dL (7.8-10.44); Carbon Dioxide 24 mmol/L (23-31); Chloride 109 mmol/L (98-107); Glucose 126 mg/dL (80-115); Magnesium 1.6 mg/dL (1.6-2.6); Potassium 3.7 mmol/L (3.5-5.1); Sodium 141 mmol/L (136-145)
[2021-05-25 08:58] LABS: Troponin I 0.132 ng/mL (< 0.028)
[2021-05-25] MEDS ORDERED: Aspirin 325 mg Enteric Coated Tablet PO SCH (09:00)
[2021-05-25] MEDS ORDERED: Aspirin 81 mg Enteric Coated Tablet PO SCH (09:00)
[2021-05-25] MEDS ORDERED: FLU VACC QS2021-22(6MOS UP)/PF 60 MCG/0.5 ML SYRINGE IM ONE (09:00)
[2021-05-25] MEDS ORDERED: Pantoprazole 40 MG GRANULES PACKET PO SCH (09:00)
[2021-05-25] MEDS ORDERED: Potassium Chloride 20 MEQ TAB PO SCH (10:30)
[2021-05-25] MEDS ORDERED: Magnesium Sulfate 4 GM in Sodium Chloride 0.9% 250 ML 250 ML IVPB SCH (11:00)
[2021-05-25 12:01] VITALS: BP 132/71; TEMP 97.9
== END 2021-05-25 14:41 | disposition home or self-care (01) ==
LOC: ERS 08:35 → ERHOLD 11:26 → 2NO 14:14
PROVIDERS: ADMIT Internal Medicine; ATTEND Internal Medicine
DX: R07.89 Other chest pain (principal); I25.10 Atherosclerotic heart disease of native coronary artery without angina pectoris; I25.84 Coronary atherosclerosis due to calcified coronary lesion; I12.9 Hypertensive chronic kidney disease with stage 1 through stage 4 chronic kidney disease, or unspecified chronic kidney disease; N18.2 Chronic kidney disease, stage 2 (mild); E78.5 Hyperlipidemia, unspecified; K21.9 Gastro-esophageal reflux disease without esophagitis; J44.9 Chronic obstructive pulmonary disease, unspecified; E87.6 Hypokalemia; E83.42 Hypomagnesemia; G89.29 Other chronic pain; M54.9 Dorsalgia, unspecified; I77.810 Thoracic aortic ectasia; Z85.118 Personal history of other malignant neoplasm of bronchus and lung; Z85.3 Personal history of malignant neoplasm of breast; Z87.891 Personal history of nicotine dependence; Z79.82 Long term (current) use of aspirin; Z79.899 Other long term (current) drug therapy; Z90.2 Acquired absence of lung [part of]; Z20.822 Contact with and (suspected) exposure to COVID-19
CPT/HCPCS: 36415; 71045; 71275; 74174; 80048; 80053; 80061; 83735; 83880; 84484; 85025; 93005; 94760; 96374; 96375; G0378; J2270; J3475; J7050; Q9967; U0002

== ENCOUNTER 2022-04-24 10:34 | Emergency (ER) | payer BC, MEDICARE ==
[2022-04-24 11:09] LABS: #Basophils 0.1 thou/uL (0.0-0.2); #Eosinphils 0.1 thou/uL (0.0-0.7); #Lymphocytes 1.8 thou/uL (1.20-3.40); #Monocytes 1.1 thou/uL (0.11-0.59); %Basophils 0.7 % (0.0-1.0); %Eosinophils 1.2 % (0.0-10.0); %Lymphocytes 22.8 % (21.0-51.0); %Monocytes 13.1 % (0.0-10.0); %Neutrophils 62.3 % (42.0-75.0); Hemoglobin 14.1 g/dL (12.0-16.0); Mean Corpuscular HGB CONC 35.1 g/dL (32.0-36.0); Mean Corpuscular Hemoglobin 32.8 pg (27.0-31.0); Mean Corpuscular Volume 93.6 fL (78.0-98.0); Mean Platelet Volume 7.5 fL (7.4-10.4); Platelet Count 174 thou/uL (130-400); RBC Distribution Width 11.9 % (11.5-14.5); Red Blood Cell (RBC) Count 4.29 mill/uL (4.20-5.40)
[2022-04-24] MEDS ORDERED: Morphine 4 MG/ML VIAL ONE (11:23)
[2022-04-24] MEDS ORDERED: Ondansetron PF 4 MG/2 ML Vial ONE (11:23)
[2022-04-24 11:25] LABS: ALT (SGPT) 18 U/L (8-55); AST (SGOT) 22 U/L (5-34); Albumin 3.4 g/dL (3.4-4.8); Alkaline Phosphatase 67 U/L (40-110); Anion Gap 10 mmol/L (10-20); BUN (Urea Nitrogen) 13 mg/dL (9.8-20.1); Bilirubin, Total 0.6 mg/dL (0.2-1.2); Calc. Creatinine Clearance 0 mL/min (70-130); Calcium 8.3 mg/dL (7.8-10.44); Carbon Dioxide 22 mmol/L (23-31); Chloride 113 mmol/L (98-107); Estimated GFR 79; Globulin 2.2 g/dL (2.4-3.5); Glucose 114 mg/dL (80-115); Lipase 56 U/L (8-78); Potassium 3.7 mmol/L (3.5-5.1); Protein, Total 5.6 g/dL (5.8-8.1); Sodium 141 mmol/L (136-145)
== END 2022-04-24 14:55 | disposition home or self-care (01) ==
LOC: ERS 10:34
DX: R07.9 Chest pain, unspecified (principal); R91.1 Solitary pulmonary nodule; K21.9 Gastro-esophageal reflux disease without esophagitis; I10 Essential (primary) hypertension; F17.210 Nicotine dependence, cigarettes, uncomplicated; Z79.899 Other long term (current) drug therapy
CPT/HCPCS: 36415; 71045; 71275; 74177; 80053; 83690; 83880; 84484; 85025; 93005; 94640; 94760; 96374; 96375; J2270; J2405; J7620; Q9967

== ENCOUNTER 2022-04-27 09:38 | Outpatient (CLI) | payer BC, MEDICARE | END 2022-04-27 09:39 | disposition home or self-care (01) | LOC: RAD 09:38 | PROVIDERS: ATTEND Internal Medicine Critical Care Medicine | DX: R06.00 Dyspnea, unspecified (principal); I70.0 Atherosclerosis of aorta | CPT/HCPCS: 71046 ==

== ENCOUNTER 2022-06-11 16:17 | Emergency (ER) | payer MEDICARE ==
[2022-06-11] MEDS ORDERED: Ketorolac Tromethamine 30 MG/ML VIAL ONE (17:11)
== END 2022-06-11 17:10 | disposition home or self-care (01) ==
LOC: ERS 16:17
DX: M54.42 Lumbago with sciatica, left side (principal); K21.9 Gastro-esophageal reflux disease without esophagitis; I10 Essential (primary) hypertension; J44.9 Chronic obstructive pulmonary disease, unspecified; F17.210 Nicotine dependence, cigarettes, uncomplicated
CPT/HCPCS: 96372; 99283; J1885

== ENCOUNTER 2022-11-17 07:51 | Emergency (ER) | payer MEDICARE ==
[2022-11-17] MEDS ORDERED: Acetaminophen 500 MG TAB ONE (08:30)
== END 2022-11-17 08:40 | disposition home or self-care (01) ==
LOC: ERS 07:51
DX: S90.112A Contusion of left great toe without damage to nail, initial encounter (principal); I10 Essential (primary) hypertension; K21.9 Gastro-esophageal reflux disease without esophagitis; J44.9 Chronic obstructive pulmonary disease, unspecified; F17.210 Nicotine dependence, cigarettes, uncomplicated; Z79.899 Other long term (current) drug therapy; W23.0XXA Caught, crushed, jammed, or pinched between moving objects, initial encounter

== ENCOUNTER 2023-03-25 16:29 | Emergency (ER) | payer BC, MEDICARE, OTHER ==
[2023-03-25] MEDS ORDERED: Ketorolac Tromethamine 30 MG/ML VIAL ONE (17:44)
== END 2023-03-25 18:20 | disposition home or self-care (01) ==
LOC: ERS 16:29
DX: M77.11 Lateral epicondylitis, right elbow (principal); M79.675 Pain in left toe(s); J44.9 Chronic obstructive pulmonary disease, unspecified; F17.210 Nicotine dependence, cigarettes, uncomplicated; I10 Essential (primary) hypertension; K21.9 Gastro-esophageal reflux disease without esophagitis; Z79.899 Other long term (current) drug therapy; Z79.51 Long term (current) use of inhaled steroids
CPT/HCPCS: 96372; J1885

== ENCOUNTER 2024-02-20 10:07 | Outpatient (CLI) | payer OTHER | END 2024-02-20 10:08 | disposition home or self-care (01) | LOC: RAD 10:07 | PROVIDERS: ATTEND Internal Medicine Critical Care Medicine | DX: R06.00 Dyspnea, unspecified (principal); R91.8 Other nonspecific abnormal finding of lung field | CPT/HCPCS: 71046 ==

== ENCOUNTER 2024-02-24 02:01 | Inpatient (IN) | payer OTHER ==
[2024-02-24] MEDS ORDERED: Magnesium 2 GM/50 ML BAG (IN WATER) ONE (02:24)
[2024-02-24] MEDS ORDERED: methylPREDNISolone Sod Succ/PF 125 MG/2 ML VIAL ONE (02:24)
[2024-02-24] MEDS ORDERED: Ipratropium/Albuterol 3 ML NEB ONE (02:24)
[2024-02-24 03:37] LABS: Bacteria/HPF None Seen HPF (None Seen); Bilirubin Negative (Negative); Blood, Urine Negative (Negative); CAUTI Indications for Culture Pelvic or flank pain; Clarity Clear (Clear); Glucose, Urine (Dipstick) Normal (Negative); Ketone, Urine Negative (Negative); Leukocyte Negative Leu/uL (Negative); Nitrite Negative (Negative); Protein, Urine (Dipstick) Negative (Neg-Trace); RBC/HPF None Seen HPF (0-3); Specific Gravity, Urine 1.002 (1.002-1.036); Squamous Epithelial None Seen HPF (0-3); Urobilinogen Normal mg/dL (Less than 2); WBC/HPF None Seen HPF (0-3)
[2024-02-24 04:31] LABS: Urine Culture Reflex No No
[2024-02-24 04:34] LABS: ALT (SGPT) 8 U/L (8-55); AST (SGOT) 14 U/L (5-34); Albumin 2.3 g/dL (3.4-4.8); Alkaline Phosphatase 77 U/L (40-110); Anion Gap 16 mmol/L (10-20); BUN (Urea Nitrogen) 6 mg/dL (9.8-20.1); Bilirubin, Total 0.3 mg/dL (0.2-1.2); Calc. Creatinine Clearance 0 mL/min (70-130); Calcium 8.3 mg/dL (7.8-10.44); Carbon Dioxide 16 mmol/L (23-31); Chloride 108 mmol/L (98-107); Estimated GFR 97; Globulin 3.7 g/dL (2.4-3.5); Glucose 116 mg/dL (80-115); Magnesium 2.3 mg/dL (1.6-2.6); Potassium 2.8 mmol/L (3.5-5.1); Sodium 137 mmol/L (136-145)
[2024-02-24 04:38] LABS: Troponin I Less than 0.010 ng/mL (< 0.028)
[2024-02-24] MEDS ORDERED: cefTRIAXone (ROCEPHIN) 2 GM VIAL ONE (04:46)
[2024-02-24 05:28] LABS: Influenza A by NAA Not Detected (NotDetected); Influenza B by NAA Not Detected (NotDetected); SARS-CoV-2 NAA Rapid Test Not Detected (NotDetected)
[2024-02-24] MEDS ORDERED: Albuterol 2.5 MG (0.5 mL) NEB ONE (05:37)
[2024-02-24 05:39] LABS: #Basophils 0.04 10x3/uL (0.0-0.2); #Eosinphils Less than 0.03 10x3/uL (0.0-0.7); %Basophils 0.3 % (0.0-1.0); %Lymphocytes 1.9 % (21.0-51.0); %Neutrophils 91.7 % (42.0-75.0); Hematocrit 28.1 % (36.0-47.0); Hemoglobin 9.7 g/dL (12.0-16.0); Mean Corpuscular HGB CONC 34.5 g/dL (32.0-36.0); Mean Corpuscular Hemoglobin 28.1 pg (27.0-31.0); Mean Corpuscular Volume 81.4 fL (78.0-98.0); Platelet Count 317 10x3/uL (130-400); RBC Distribution Width 12.9 % (11.5-14.5); Red Blood Cell (RBC) Count 3.45 mill/uL (4.20-5.40)
[2024-02-24] MEDS ORDERED: Morphine 4 MG/ML VIAL ONE (05:54)
[2024-02-24] MEDS ORDERED: Potassium Chloride 20 MEQ (100 mL) BAG ONE (06:14)
[2024-02-24] MEDS ORDERED: Ketorolac Tromethamine 30 MG (1 mL) VIAL ONE (06:51)
[2024-02-24 07:50] LABS: Lactic Acid 3.7 mmol/L (0.5-2.2)
[2024-02-24] MEDS ORDERED: Ondansetron PF 4 MG/2 ML Vial IVP PRN (08:38)
[2024-02-24] MEDS ORDERED: Ipratropium/Albuterol 3 ML NEB NEB PRN (08:39)
[2024-02-24 08:47] LABS: Troponin I Less than 0.010 ng/mL (< 0.028)
[2024-02-24] MEDS ORDERED: Piperacillin/Tazobactam 3.375 GM in Sodium Chloride 0.9% 100 ML IVPB SCH (09:00)
[2024-02-24] MEDS ORDERED: Albuterol 2.5 MG (3 mL) NEB NEB PRN (09:32)
[2024-02-24 09:49] LABS: Iron 12 ug/dL (50-170); Iron Binding Capacity, Total 205 mcg/dL (265-497)
[2024-02-24 09:55] LABS: Lactic Acid 4.2 mmol/L (0.5-2.2)
[2024-02-24 10:34] LABS: Troponin I Less than 0.010 ng/mL (< 0.028)
[2024-02-24 10:40] VITALS: BMI 20.4
[2024-02-24] MEDS: Vancomycin (BATCH) 1.25 GM in Premix 1 BAG IVPB SCH (11:12)
[2024-02-24] MEDS: Piperacillin/Tazobactam 3.375 GM in Sodium Chloride 0.9% 100 ML IVPB SCH ×3 (11:13→15:56)
[2024-02-24] MEDS: Aspirin 81 mg Enteric Coated Tablet PO SCH (11:13)
[2024-02-24] MEDS: Famotidine 20 MG TAB PO SCH (11:13)
[2024-02-24] MEDS: Enoxaparin 40 MG (0.4 mL) SYRINGE SC SCH (11:13)
[2024-02-24] MEDS: Sodium Chloride 0.9% 1,000 ML IV SCH (11:14)
[2024-02-24] MEDS ORDERED: Iopamidol 370 76% 100 ML VIAL ONE (12:20)
[2024-02-24 12:36] LABS: Lactic Acid 4.2 mmol/L (0.5-2.2)
[2024-02-24] MEDS: methylPREDNISolone Sod Succ 40 MG VIAL IVP SCH (12:39)
[2024-02-24] MEDS: Ipratropium/Albuterol 3 ML NEB NEB SCH (15:50)
[2024-02-24] MEDS: Sodium Chloride 0.9% 500 ML IV SCH (15:57)
[2024-02-24] MEDS ORDERED: Vancomycin HCl 750 MG in Sodium Chloride 0.9% 250 ML 250 ML IVPB SCH (20:00)
[2024-02-24] MEDS: Rosuvastatin 20 MG TAB PO SCH (20:41)
[2024-02-24 20:57] LABS: Lactic Acid 2.9 mmol/L (0.5-2.2)
[2024-02-24] MEDS: ALPRAZolam 0.25 MG TAB PO PRN (23:06)
[2024-02-25] MEDS ORDERED: Vancomycin (BATCH) 1.5 GM in Premix 1 BAG IVPB SCH (03:00)
[2024-02-25 06:00] LABS: #Basophils Less than 0.03 10x3/uL (0.0-0.2); #Eosinphils Less than 0.03 10x3/uL (0.0-0.7); %Basophils 0.1 % (0.0-1.0); %Lymphocytes 2.2 % (21.0-51.0); %Monocytes 5.3 % (0.0-10.0); %Neutrophils 91.2 % (42.0-75.0); Hematocrit 28.6 % (36.0-47.0); Hemoglobin 9.5 g/dL (12.0-16.0); Mean Corpuscular HGB CONC 33.2 g/dL (32.0-36.0); Mean Corpuscular Hemoglobin 27.7 pg (27.0-31.0); Mean Corpuscular Volume 83.4 fL (78.0-98.0); Mean Platelet Volume 8.7 fL (7.4-10.4); Platelet Count 312 10x3/uL (130-400); RBC Distribution Width 13.1 % (11.5-14.5); Red Blood Cell (RBC) Count 3.43 mill/uL (4.20-5.40)
[2024-02-25 06:37] LABS: Lactic Acid 2.8 mmol/L (0.5-2.2)
[2024-02-25 06:40] LABS: Anion Gap 12 mmol/L (10-20); BUN (Urea Nitrogen) 10 mg/dL (9.8-20.1); Calc. Creatinine Clearance 65 mL/min (70-130); Calcium 8.2 mg/dL (7.8-10.44); Carbon Dioxide 18 mmol/L (23-31); Chloride 113 mmol/L (98-107); Estimated GFR 97; Glucose 159 mg/dL (80-115); Potassium 4.1 mmol/L (3.5-5.1); Sodium 139 mmol/L (136-145)
[2024-02-25] MEDS: Vancomycin 1 GM in Premix 1 BAG IVPB SCH (07:54)
[2024-02-25] MEDS: Ferrous Sulfate 325 MG TAB PO SCH (08:35)
[2024-02-25] MEDS: ALPRAZolam 0.25 MG TAB PO PRN (08:36)
[2024-02-25] MEDS: Benzonatate 100 MG CAP PO SCH (17:22)
[2024-02-25] MEDS: methylPREDNISolone Sod Succ 40 MG VIAL IVP SCH (20:43)
[2024-02-26] MEDS: Acetaminophen 325 MG TAB PO PRN (01:00)
[2024-02-26 07:45] LABS: #Basophils Less than 0.03 10x3/uL (0.0-0.2); #Eosinphils Less than 0.03 10x3/uL (0.0-0.7); %Lymphocytes 2.5 % (21.0-51.0); %Monocytes 9.4 % (0.0-10.0); %Neutrophils 86.8 % (42.0-75.0); Hematocrit 28.9 % (36.0-47.0); Hemoglobin 9.6 g/dL (12.0-16.0); Mean Corpuscular HGB CONC 33.2 g/dL (32.0-36.0); Mean Corpuscular Hemoglobin 27.7 pg (27.0-31.0); Mean Corpuscular Volume 83.5 fL (78.0-98.0); Mean Platelet Volume 8.4 fL (7.4-10.4); Platelet Count 314 10x3/uL (130-400); RBC Distribution Width 13.2 % (11.5-14.5); Red Blood Cell (RBC) Count 3.46 mill/uL (4.20-5.40)
[2024-02-26 08:04] LABS: Anion Gap 11 mmol/L (10-20); BUN (Urea Nitrogen) 19 mg/dL (9.8-20.1); Calc. Creatinine Clearance 60 mL/min (70-130); Calcium 8.6 mg/dL (7.8-10.44); Carbon Dioxide 22 mmol/L (23-31); Chloride 115 mmol/L (98-107); Estimated GFR 85; Glucose 116 mg/dL (80-115); Potassium 4.4 mmol/L (3.5-5.1); Sodium 144 mmol/L (136-145)
[2024-02-26] MEDS ORDERED: SUGAMMADEX SODIUM 200 MG/2 ML VIAL ONE (09:35)
[2024-02-26] MEDS ORDERED: PROPOFOL 20 ML ONE (09:35)
[2024-02-26] MEDS ORDERED: Rocuronium Bromide 10 MG/ML (10ML VIAL) ONE (09:35)
[2024-02-26] MEDS ORDERED: fentaNYL PF 100 MCG/2 ML SYRINGE ONE (09:35)
[2024-02-26] MEDS ORDERED: EPINEPHrine 1 MG/10 ML Abboject SYRINGE ONE (12:09)
[2024-02-26] MEDS ORDERED: Ondansetron PF 4 MG/2 ML Vial ONE (12:12)
[2024-02-26] MEDS ORDERED: Dexamethasone 20 MG/5 ML VIAL ONE (12:12)
[2024-02-26] MEDS ORDERED: Ipratropium/Albuterol 3 ML NEB ONE (12:36)
[2024-02-26] MEDS ORDERED: Ondansetron HCl/PF 4 MG/2 ML Vial IVP PRN (12:38)
[2024-02-27 03:31] LABS: #Basophils 0.03 10x3/uL (0.0-0.2); #Eosinphils Less than 0.03 10x3/uL (0.0-0.7); %Basophils 0.2 % (0.0-1.0); %Lymphocytes 2.9 % (21.0-51.0); %Monocytes 6.5 % (0.0-10.0); %Neutrophils 87.2 % (42.0-75.0); Hematocrit 29.2 % (36.0-47.0); Hemoglobin 9.7 g/dL (12.0-16.0); Mean Corpuscular HGB CONC 33.2 g/dL (32.0-36.0); Mean Corpuscular Volume 84.4 fL (78.0-98.0); Mean Platelet Volume 8.6 fL (7.4-10.4); Platelet Count 293 10x3/uL (130-400); RBC Distribution Width 13.2 % (11.5-14.5); Red Blood Cell (RBC) Count 3.46 mill/uL (4.20-5.40)
[2024-02-27] MEDS: Morphine 2 MG/ML VIAL SLOW IVP SCH (03:43)
[2024-02-27 05:01] LABS: Anion Gap 15 mmol/L (10-20); BUN (Urea Nitrogen) 20 mg/dL (9.8-20.1); Calc. Creatinine Clearance 54 mL/min (70-130); Calcium 8.4 mg/dL (7.8-10.44); Carbon Dioxide 23 mmol/L (23-31); Chloride 111 mmol/L (98-107); Estimated GFR 74; Glucose 133 mg/dL (80-115); Potassium 4.6 mmol/L (3.5-5.1); Sodium 144 mmol/L (136-145)
[2024-02-27] MEDS ORDERED: Nitroglycerin 0.4 MG TAB (25 Tab Bottle) SL PRN (09:36)
[2024-02-27] MEDS: Nitroglycerin 0.4 MG TAB (25 Tab Bottle) ONE (10:09)
[2024-02-27] MEDS: Morphine 4 MG/ML VIAL ONE (10:10)
[2024-02-27 10:41] LABS: Troponin I 0.073 ng/mL (< 0.028)
[2024-02-27 12:57] VITALS: BP 146/86
[2024-02-27] MEDS: Morphine 2 MG/ML VIAL SLOW IVP PRN (20:12)
[2024-02-28 05:26] LABS: #Basophils 0.03 10x3/uL (0.0-0.2); #Eosinphils Less than 0.03 10x3/uL (0.0-0.7); %Basophils 0.2 % (0.0-1.0); %Lymphocytes 4.6 % (21.0-51.0); %Monocytes 9.7 % (0.0-10.0); %Neutrophils 82.3 % (42.0-75.0); Hematocrit 28.6 % (36.0-47.0); Hemoglobin 9.5 g/dL (12.0-16.0); Mean Corpuscular HGB CONC 33.2 g/dL (32.0-36.0); Mean Corpuscular Volume 81.3 fL (78.0-98.0); Mean Platelet Volume 8.9 fL (7.4-10.4); Platelet Count 269 10x3/uL (130-400); RBC Distribution Width 13.6 % (11.5-14.5); Red Blood Cell (RBC) Count 3.52 mill/uL (4.20-5.40)
[2024-02-28 05:44] LABS: Anion Gap 11 mmol/L (10-20); BUN (Urea Nitrogen) 15 mg/dL (9.8-20.1); Calc. Creatinine Clearance 63 mL/min (70-130); Carbon Dioxide 24 mmol/L (23-31); Chloride 111 mmol/L (98-107); Estimated GFR 89; Glucose 108 mg/dL (80-115); Potassium 4.3 mmol/L (3.5-5.1); Sodium 142 mmol/L (136-145)
[2024-02-28 09:16] LABS: Troponin I 0.051 ng/mL (< 0.028)
[2024-02-28 11:47] VITALS: TEMP 97.5
[2024-02-28] MEDS ORDERED: Regadenoson 0.4 MG/5 ML SYRINGE ONE (11:59)
[2024-02-28] MEDS ORDERED: Amoxicillin/Potassium Clav 875 MG TAB PO SCH (21:00)
[2024-02-29] MEDS ORDERED: methylPREDNISolone Sod Succ 40 MG VIAL IVP SCH (09:00)
[2024-02-29 15:17] LABS: Fungus Stain Final report (.)
== END 2024-02-28 14:45 | disposition left against medical advice (07) | DRG 163 ==
LOC: ERS 02:01 → IMCU/EMU 07:46
PROVIDERS: ADMIT Internal Medicine; ATTEND Internal Medicine
PROC: 0W3 Anatomical Regions, General, Control (ICD-10-PCS; principal; 2024-02-26)
PROC: 0BB58ZX Excision of Right Middle Lobe Bronchus, Via Natural or Artificial Opening Endoscopic, Diagnostic (ICD-10-PCS; 2024-02-26)
PROC: 3E0F8GC Introduction of Other Therapeutic Substance into Respiratory Tract, Via Natural or Artificial Opening Endoscopic (ICD-10-PCS; 2024-02-26)
DX: C34.01 Malignant neoplasm of right main bronchus (principal); J18.9 Pneumonia, unspecified organism; J96.01 Acute respiratory failure with hypoxia; E87.21 Acute metabolic acidosis; J44.0 Chronic obstructive pulmonary disease with (acute) lower respiratory infection; J44.1 Chronic obstructive pulmonary disease with (acute) exacerbation; E44.0 Moderate protein-calorie malnutrition; C78.1 Secondary malignant neoplasm of mediastinum; I89.1 Lymphangitis; I10 Essential (primary) hypertension; E87.6 Hypokalemia; D64.9 Anemia, unspecified; Z88.1 Allergy status to other antibiotic agents; Z79.899 Other long term (current) drug therapy; Z79.2 Long term (current) use of antibiotics; Z90.2 Acquired absence of lung [part of]; Z87.891 Personal history of nicotine dependence; Z90.710 Acquired absence of both cervix and uterus; Z85.118 Personal history of other malignant neoplasm of bronchus and lung; R13.10 Dysphagia, unspecified; Z68.22 Body mass index [BMI] 22.0-22.9, adult
CPT/HCPCS: 36415; 71045; 71275; 78452; 80048; 80053; 81001; 82728; 83540; 83550; 83605; 83735; 83880; 84145; 84484; 85025; 87040; 87070; 87086; 87102; 87116; 87205; 87206; 88112; 88305; 88341; 88342; 93005; 93010; 93017; 94640; 96365; 96366; 96367; 96375; A9502; J0171; J0696; J1100; J1650; J1885; J2270; J2272; J2405; J2543; J2704; J2785; J2920; J2930; J3370; J3475; J3480; J3490; J7030; J7050; J7611; J7620; Q9967